=== PATIENT | male | born 1965 | race Caucasian/White ===

== ENCOUNTER → 2016-06-04 | Outpatient (CLI) | payer MEDICARE, MEDICAID ==
[~2016-06-04] MED LIST: BENTYL GENERIC10 MG PO; CIPRO 500MG TA500 MG PO; CYCLOBENZAPRINE10 MG PO; DIAZEPAM10 M1 PO; DIAZEPAM10 MG PO; FLOMAX 0.4MG C0.4 MG PO; GABAPENTIN 600600 MG GT; GABAPENTIN 600600 MG PO; GOOD NEIGHBOR P20 M1 PO; HYDROCODONE 7.51 TAB PO; KAPIDEX60 MG PO; LISINOPRIL 20MG20 MG PO; LORATADINE 10MG10 M1 PO; MEDROL 4MG. DOSE4 MG PO; MELOXICAM15 MG PO; METOCLOPRAMIDE H5 MG PO; MORPHINE SULFAT15 M2 PO; MORPHINE SULFAT15 MG PO; OXYCODONE SR 2020 MG PO; OXYCONTIN 20MG.20 MG PO; PANTOPRAZOLE SO40 MG PO; PERCOCET 10 MG1 EACH PO; PERCOCET1 TA1 PO; PREDNISONE 20MG20 MG PO; PRILOSEC10 MG PO; ROXICET 325 MG500 ML GT; SILVADENE1% TP; SYNTHROID0.025 MG PO; TERAZOSIN PO; TRAZADONE HYDR100 MG PO; TRAZODONE HCL100 MG PO; ULTRAM50 MG PO; VALIUM 10MG TAB10 MG PO; VALIUM10 M1 PO; VITAMIN D1000 IU PO; ZANTAC 150150 MG PO; [UNRECOGNIZED DRUG - REMARK]
[2016-06-04 13:59] LABS: AMPHETAMINES/METAMPHETAMINES NEGATIVE ng/mL (<1000)
== END ==
LOC: LAB 13:31
PROVIDERS: Emergency Medicine
DX: Z79.899 Other long term (current) drug therapy (principal)

== ENCOUNTER → 2016-06-29 | Outpatient (CLI) | payer MEDICARE, MEDICAID ==
[2016-06-29 16:22] LABS: HEMOGLOBIN 12.5 g/dL (14.1-18.0); LYMPH # 0.9 K/mm3 (0.7-4.5); LYMPH % 15.1 % (10-50)
[2016-06-29 16:45] LABS: AMPHETAMINES/METAMPHETAMINES NEGATIVE ng/mL (<1000)
[2016-06-29 16:50] LABS: BUN 9 mg/dL (7-18)
[2016-06-29 16:56] LABS: GFR (ESTIMATED) 90 ML/MIN (>60)
== END ==
LOC: LAB 15:31
PROVIDERS: Emergency Medicine
DX: I10 Essential (primary) hypertension (principal); E07.9 Disorder of thyroid, unspecified; Z79.899 Other long term (current) drug therapy

== ENCOUNTER → 2016-07-07 | Outpatient (CLI) | payer MEDICARE, MEDICAID ==
[2016-07-10 14:51] LABS: STOOL OCCULT BLOOD NEGATIVE (NEG)
== END ==
LOC: LAB 12:00
PROVIDERS: Emergency Medicine
DX: D64.9 Anemia, unspecified (principal)

== ENCOUNTER → 2016-07-08 | Outpatient (CLI) | payer MEDICARE, MEDICAID ==
[2016-07-10 14:52] LABS: STOOL OCCULT BLOOD NEGATIVE (NEG)
[2016-07-10 14:52] LABS: STOOL OCCULT BLOOD NEGATIVE (NEG)
== END ==
LOC: LAB 12:00
PROVIDERS: Emergency Medicine
DX: D64.9 Anemia, unspecified (principal)

== ENCOUNTER → 2016-07-25 | Outpatient (CLI) | payer MEDICARE, MEDICAID ==
[2016-07-25 15:29] LABS: HEMOGLOBIN 11.9 g/dL (14.1-18.0); LYMPH # 0.8 K/mm3 (0.7-4.5); LYMPH % 14.9 % (10-50)
[2016-07-25 16:00] LABS: AMPHETAMINES/METAMPHETAMINES NEGATIVE ng/mL (<1000)
--- NOTE | 2016-07-25 17:03 | RADIOLOGY REPORT PS360 ---
CHEST(2 VIEWS-NOT PORTABLE) HISTORY: COUGH W/HEMOPTYSIS ORDERING PHYSICIAN: VERONICA WHITE PATIENT AGE: 51 years COMPARISON: 09/22/2015 FINDINGS: The cardiomediastinal silhouette and pulmonary vascularity are within normal limits. There is COPD with scattered areas of fibrosis. Patchy density is present in the left lower lobe may be due to an area of infiltrate or even a developing nodule. Follow-up recommended. There is increased density in the left suprahilar region also. Prominent than when compared to the previous exam. This could be due to overlapping vessels. No developing hilar nodule/mass is also a consideration. Chronic changes are present in the right lower lobe with some increased density. There is increased density in the region of the right middle lobe/lingula on the lateral view. Surgical clips are present in the right suprahilar region. No acute bony abnormalities. IMPRESSION: 1. COPD with chronic change. 2. Suspect infiltrate in the right middle lobe and/or lingula with chronic changes along with nodular opacity overlying the left lower lobe 2 cm. Pulmonary mass cannot be excluded. 3. Prominence of the suprahilar region on the left which could also be due to developing nodule. Consider chest CT for more thorough evaluation.
== END ==
LOC: RAD 14:06 → LAB 14:06
PROVIDERS: Physician Assistant
DX: R04.2 Hemoptysis (principal); Z79.899 Other long term (current) drug therapy

== ENCOUNTER → 2016-08-27 | Outpatient (CLI) | payer MEDICARE, MEDICAID ==
--- NOTE | 2016-08-29 07:46 | RADIOLOGY REPORT PS360 ---
CT CHEST W/O CONTRAST Ordering Physician: VERONICA WHITE Patient Age: 51 years: Male HISTORY: PULMONARY NODULE, COUGH WITH HYMOPTYSIScough metaphysis history of larynx and neck cancer TECHNIQUE: Helical CT axial scanning performed through chest No IV contrast utilized. Coronal and sagittal Reconstruction CT workstation FINDINGS The patient has a tracheostomy with tracheostomy tube in place. Suspect reconstruction of the esophagus as well, noting postsurgical changes along the entire course of a quite dilated esophagus. 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 Possible bowel interposition reconstructing esophagus. Clinical correlation required.. . The previous CT chest study of August 2013 showed prominent soft tissue lesion with erosion of the medial head of RIGHT clavicle. The soft tissue mass previously seen in this area resected in the interval. This area to the right appears overall satisfactory today but somewhat limited reviewed. Extensive soft tissue density is with previously removed here.-. The neck & this region at base of neck warrants ongoing follow-up, and if no outside CT neck performed (as directed oncology is or cancer team ), then would suggest follow-up CT neck with contrast to follow-up the treated disease at neck & base of neck. Also note that IV contrast be very helpful particular post surgical post cancer patient and better delineate structures at neck and chest on follow-up studies, if feasible. There are prominent hypertrophic changes seen at sternoclavicular junction & anterior left first rib and. I would speculate that these could possibly impinge upon the slightly dilated trachea and ostomy. Conceivably could contribute to dilatation or cough? Merely noted as speculation. . Mediastinum. No significant hilar no mediastinal adenopathy. There are some scattered small mediastinal nodes but these appear stable. In fact anterior mediastinum appears slightly clearer superiorly limited previous. Airways. Mild dilatation of the airways again seen throughout trachea megaly. No endobronchial lesion. Upper normal wall thickness of central airways inferior to the hilar region Lungs. Underlying COPD and emphysematous changes. Linear scarring throughout the lungs most evident toward lung lung bases. Slight associated pleural scarring in these regions. There is only some slight additional density wispy density anteriorly at the are and L. I tend to favor this is reflection of some additional scarring but a be difficult to exclude a very subtle infiltrate sagittal image 28 axial image 67. Stable 4.2 mm nonspecific pulmonary nodule at the right middle lobe near the fissure. Most likely a benign fissural nodule be followed. This remains unchanged. Left apical pleural parenchymal scarring more so than right again noted and stable no new rib or osseous lesions noted. T-spine unchanged. . Uppermost abdomen. No prominent findings Adrenals normal. Tiny immanuel of calcification and wall gallbladder noted.. Upper normal caliber fluid-filled proximal small bowel. ... IMPRESSION:... Prominent postsurgical changes neck & chest.. 1. Tracheostomy. Extensive surgery including resection medial head of clavicle due to mass previously in this region on 2013 CT.. Today we now see some mild irregularities at the medial head of the left clavicle. This may merely reflect some degenerative subchondral cystic changes but but will require follow-up to exclude early lesion. No associated soft tissue density here I suspect this patient interval CT neck or chest elsewhere where he is been followed. If not he can be followed on regular basis by his oncologist or cancer surgery team 2. A tracheostomy tube in place.. Would note the prominent hypertrophy and degenerative changes at left sternoclavicular joint/& left first rib region. This prominent hypertrophic bone Conceivably. Impinge upon the left aspect mass tracheostomy or proximal most trachea...-Speculate that this could yield irritation proximal most trachea at this level & contribute to cough??. Merely speculation. Clinical correlation required 3. Extensive esophageal surgery also evident With Quite Dilated but overall stable appearance of what is likely reconstructed esophagus. 4. Lungs. COPD with areas of scarring throughout, most evident towards bases. Only minor wispy new additional density seen anterior RML and lateral aspect RML. Strongly favor postinflammatory scarring and changes but difficult to totally exclude a subtle areas minimal infiltrate. 5. Stable small 4.2 mm nodule along the fissure RML. It
== END ==
LOC: RAD 12:40
DX: R91.1 Solitary pulmonary nodule (principal); R04.2 Hemoptysis

== ENCOUNTER 2017-04-05 22:25 | Emergency (ER) | payer MEDICARE, MEDICAID ==
[~2017-04-05] VITALS: Ht 172.7 cm; Wt 67.6 kg
[2017-04-05] MEDS ORDERED: GABAPENTIN300 MG PO (22:35)
--- OUTSIDE RECORDS SUMMARY | 2017-04-05 22:50 | External Medical Summary Rpt | CCD ---
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 Name Role Phone A Nicolasa CASTILLO MD PSC, A Unavailable Unavailable Nicolasa CASTILLO MD PSC [facility], [facility] Unavailable Unavailable [facility] Unavailable Unavailable [facility], [facility] LEISA OTERO MD, PSC, Unavailable Unavailable LEISA OTERO MD, PSC [facility] Unavailable Unavailable [facility], [facility], Unavailable Unavailable [facility] ATTILI ANI, ATTILI Unavailable Unavailable KIRT CASTILLO, Unavailable Unavailable ,PSC, NATALYA CASTILLO MD,PSC [facility] Unavailable Unavailable INC., [facility], Unavailable Unavailable INC, [facility] HAYDEN ANT, HAYDEN ANT Unavailable Unavailable [facility] Unavailable Unavailable SERVICE, [facility]available Unavailable SERVICE, [facility] WARD JAM, WARD Unavailable Unavailable JAM COMPREHENSIVE PAIN Unavailable Unavailable SPECIALIS, COMPREHENSIVE PAIN SPECIALIS MEE BRANDEN, Unavailable Unavailable MEE BRANDEN MEE, ALFONSO, Unavailable Unavailable MEE, ALFONSO DISANTIS BLADIMIR, Unavailable Unavailable DISANTIS BLADIMIR ESCOTT EDW, ESCOTT Unavailable Unavailable EDW [facility] Unavailable Unavailable TRANSPORTATION SER, [facility] ADRIAN DASHAWN, ADRIAN Unavailable Unavailable DASHAWN VICENTE COLMENARES S, Unavailable Unavailable [facility] GAL JR THO, GAL JR Unavailable Unavailable THO [facility] Unavailable Unavailable INC, [facility] ROXANA JACOB, ROXANA Unavailable Unavailable JACOB [facility], Unavailable Unavailable [facility] Unavailable Unavailable INC, [facility] KILPELA JEA, KILPELA Unavailable Unavailable CRISTIAN FISHMAN, PEARL FISHMAN Unavailable Unavailable Kenia Bruce MD, Unavailable Unavailable Kenia KAMARA, KING ASAD Unavailable Unavailable MARY SAUNDERS, Unavailable Unavailable MARY CARDONA, RANJITH CARDONA Unavailable Unavailable [facility] Un[facility] CORRY JR DWI, CORRY Unavailable Unavailable JR DWI Tayler Colmenares MD, Unavailable Unavailable Tayler OTERO MD, JESSE Unavailable Unavailable SHANNA WOODS, ERYN WOODS Unavailable Unavailable [facility] Unavailable Unavailable SERVICES, [facility] MCCOUN STEPHEN, MCCOUN Unavailable Unavailable STEPHEN MCGARYMIE JR, TOLU Unavailable Unavailable F, CHELITA MELÉNDEZ, TOLU F BK MCGREGOR, Unavailable Unavailable BK JI, TOLU F, Unavailable Unavailable TOLU JI, GUILHERME Unavailable Unavailable [facility] Unavailable Unavailable [facility] PSC OLSEN AMI, OLSEN AMI Unavailable Unavailable RASLAU FLA, RASLAU Unavailable Unavailable FLA NIVIA KRISTA, NIVIA KRISTA Unavailable Unavailable TRISTA BREANNA, TRISTA Unavailable Unavailable BREANNA DIAS CHAD, Unavailable Unavailable DIAS CHAD ROGOZINSKI ZBI, Unavailable Unavailable ROGOZINSKI ZBI LEFTY AMARILIS, LEFTY AMARILIS Unavailable Unavailable STEYN AMERICA, STEYN AMERICA Unavailable Unavailable STILES NAN, STILES Unavailable Unavailable NAN LONDON WILLIAM, LONDON Unavailable Unavailable WILLIAM DELEON MOL, DELEON MOL Unavailable Unavailable [facility] Unavailable Unavailable HOSPITALS, [facility], Unavailable Unavailable [facility] Un[facility] [place] ANTONI KAMARA, Unavailable Unavailable ANTONI KANG, ZHENG KANG Unavailable Unavailable ELIJAH DASHAWN, ELIJAH Unavailable Unavailable DASHAWN Purpose Continuity of Care Document - 09-27-2007 through 2016 Problems Code Diagnosis DOS Provider Status C329 MALIGNANT 02-04-2017 [facility] UNSPECIFIED K222 ESOPHAGEAL 02-04-2017 [facility] R1310 DYSPHAGIA 02-04-2017 [facility]PECIFIED [facility]ARE H[facility] R1319 OTHER 02-04-2017 [facility] DYSPHAG[facility] Z8521 PERSONAL 02-04-2017 [facility] H[facility] OF SERV MALIGNANT [facility]OUNDATION NEOPLASM OF LARYNX Z930 TRACHEOSTOM 02-04-2017 [facility] STATUS [facility] J982 INTERSTITIA 01-30-2017 [place] [facility] EMPHYSEMA SERV [facility] J9503 MALFUNCTION 01-29-2017 [facility] TRACHEOSTOM HOSPI Y STOMA K228 OTHER 01-29-2017 [facility] SPECIFIED SERV DISEASES OF FOUNDATION ESOPHAGUS Z9002 ACQUIRED 01-29-2017 [facility] ABSENCE OF OF [place] [facility]PI Z923 PERSONAL 01-29-2017 [facility] HISTORY OF OF [place] IRRADIATION HOSPI R69 ILLNESS 01-10-2017 [facility] UNSPECIFIED TRANSPORTAT ION SER H547 UNSPECIFIED 12-26-2016 [facility] K829 DISEASE OF 12-26-2016 [place] [facility] UNSPECIFIED R1011 RIGHT UPPER 12-26-2016 [place] [facility] R42 DIZZINESS 12-26-2016 [place] AND [facility] GIDDINESS IMAGING ASS Z0000 ENCOUNTER 12-17-2016 [facility] W/O ABNORMAL FIND G8929 OTHER 12-13-2016 COMPREHENSI CHRONIC VE PAIN PAIN SPECIALIS G893 NEOPLASM 12-13-2016 COMPREHENSI RELATED VE PAIN PAIN ACUTE SPECIALIS CHRONIC M792 NEURALGIA 12-13-2016 COMPREHENSI AND VE PAIN NEURITIS SPECIALIS UNSPECIFIED 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-2016 COMPREHENSI CURRENT USE VE PAIN OF OPIATE SPECIALIS ANALGESIC D649 ANEMIA 11-19-2016 [facility] UNSPECIFIED PHYSICIANS GROUP E039 HYPOTHYROID 11-19-2016 [facility] ISM PHYSICIANS UNSPECIFIED GROUP I10 ESSENTIAL 11-19-2016 [facility] PRIMARY PHYSICIANS HYPERTENSIO GROUP N J302 OTHER 11-19-2016 [facility] SEASONAL PHYSICIANS ALLERGIC GROUP RHINITIS R491 APHONIA 11-19-2016 [facility] R5382 CHRONIC 11-19-2016 [facility] FATIGUE PHYSICIANS UNSPECIFIED GROUP M5020 OTH 10-23-2016 [place] CERVICAL MEDICAL DISC IMAGING ASS DISPLACEMEN T UNS CERV REGION F26840 OTHER 10-23-2016 [place] CERV[facility] DISC IMAGING ASS DEGENERATIO N AT C5-C6 LEVEL M542 CERVICALGIA 10-23-2016 [facility] M6250 MUSCLE 10-01-2016 NATALYA HARMAN & NICOLE CASTILLO MD,PSC UNSPECIFIED SITE M791 MYALGIA 10-01-2016 NATALYA CASTILLO MD,PSC R5383 OTHER 10-01-2016 NATALYA CASTILLO MD,PSC J449 CHRONIC 08-27-2016 [place] OBSTRUCTIVE MEDICAL PULMONARY IMAGING ASS DISEASE UNS R042 HEMOPTYSIS 08-27-2016 [facility] R911 SOLITARY 08-27-2016 [facility] PULMONARY [facility] NODULE INC R918 OTHER 08-27-2016 [place] NONSPECIFIC MEDICAL ABNORMAL IMAGING ASS FINDING OF LUNG FIELD W10455 OTHER LONG 08-22-2016 [facility] TERM PHYSICIANS CURRENT GROUP DRUG THERAPY E079 DISORDER OF 05-15-2016 [facility] THYROID PHYSICIANS UNSPECIFIED GROUP Z720 TOBACCO USE 05-15-2016 [facility] PHYSICIANS GROUP T12513 PRIMARY 05-09-2016 [facility], TIS RIGHT INC WRIST I76763 PAIN IN 05-09-2016 [facility] PSC G8918 OTHER ACUTE 04-24-2016 [facility] POSTPROCEDU PSC RAL PAIN M1811 UNI PRIM 04-24-2016 [facility] TIS [facility]ST [facility] PSC JOINT RT HAND J84041 PAIN IN 03-19-2016 [facility] RIGHT HAND PHYSICIANS GROUP G894 CHRONIC 02-16-2016 A C ANNA PAIN PSC SYNDROME M5116 INTERVERTEB 01-23-2016 JENNIFER CREWS MD, PSC D/O W/RADICULOP ATHY LUMB RGN Z08 ENCOUNTER 10-07-2015 [facility] F/U [facility] AFTER CMPL TX MALIG NEOPLASM Z9889 OTHER 10-07-2015 [facility] SPECIFIED SERV POSTPROCEDU [facility] STATES X54919 PAIN IN 09-22-2015 [place] LEFT MEDICAL SHOULDER IMAGING ASS R65348 PAIN IN 09-22-2015 [facility] M4722 OT 09-22-2015 [place] SPONDYLOSIS MEDICAL IMAGING ASS W/RADICULOP ATHY CERVICAL REGION Q22972 OTHER 09-22-2015 [place] [facility] SPONDYLOSIS SERV CERVICAL FOUNDATION REGION M5032 OTH CERV 09-22-2015 [place] DISC MEDICAL DEGENERATIO IMAGING ASS N MID-CERVICA L REGION M532X2 SPINAL 09-22-2015 [facility] INSTABILITI [facility] ES CERVICAL INC REGION R079 CHEST PAIN 09-22-2015 [place] UNSPECIFIED MEDICAL IMAGING ASS R52 PAIN 09-22-2015 [facility] UNSPECIFIED [facility]ANCE SERVICE C73515E UNSPEC 09-22-2015 [facility] NONDISPLC AMBULANCE FX 2ND CERV SERVICE VERT INIT CLOSED FX H273LTY UNSPECIFIED 09-22-2015 [place] INJURY OF MEDICAL NECK IMAGING ASS INITIAL ENCOUNTER Z632BJG UNSPECIFIED 09-22-2015 [place] INJURY OF MEDICAL THORAX IMAGING ASS INITIAL ENCOUNTER S3066PL UNS INJURY 09-22-2015 [place] LT SHOULDER MEDICAL UPPER ARM IMAGING ASS INITIAL ENCNTR P43187E CONTUSION 09-22-2015 [facility] INITIAL ENCOUNTER A89782Z CONTUSION 09-22-2015 [facility] INITIAL ENCOUNTER E04AZFD UNSPECIFIED 09-22-2015 [facility] FALL SERV INITIAL FOUNDATION ENCOUNTER Z043 ENCOUNTER 09-22-2015 [facility] EXAM & SERV OBSERVATION FOUNDATION FOLLOW OTH ACCIDENT M5136 OTH 07-15-2015 [place] INTERVERTEB MEDICAL RAL DISC IMAGING ASS DEGEN LUMBAR REGION M545 LOW BACK 07-15-2015 [place] PAIN MEDICAL IMAGING ASS M549 DORSALGIA 07-15-2015 [facility]PECIFIED [facility] V71128 PAIN IN 07-15-2015 [place] LEFT LEG MEDICAL IMAGING ASS J8410 PULMONARY 03-31-2015 [facility] FIBROSIS SERV UNSPECIFIED FOUNDATION 3383 NEOPLASM 01-03-2015 GRIFFIN CREWS MD, PSC PAIN ACUTE CHRONIC 7231 CERVICALGIA 01-03-2015 LEISA OTERO MD, PSC 2449 UNSPECIFIED 12-23-2014 [facility] HYPOTHYROID ISM 78466 JESSEE LOC 12-23-2014 [facility] PROS W/O UR OBST & OTH LUTS 70427 APHONIA 12-23-2014 [facility] 09454 DYSPHAGIA 12-23-2014 [facility] 82282 12-23-2014 [facility] ION SER V1021 PERSONAL 12-23-2014 [facility] HISTORY OF HOSPITAL MALIGNANT NEOPLASM OF LARYNX V573 CARE 12-23-2014 [facility] USE [facility]HAB SPEECH-LANG UAGE [place] V5869 LONG-TERM 12-23-2014 [facility] (CURRENT) HOSPITAL USE OF OTHER MEDICATIONS 97369 LOC 12-15-2014 [facility] OSTEOARTHRO PHYSICIANS S NOT SPEC GROUP WHETHER PRIM/SEC HAND 7295 PAIN IN 11-18-2014 [place] SOFT MEDICAL TISSUES OF IMAGING ASS LIMB 1619 MALIGNANT 11-08-2014 JESSE OTERO NEOPLASM OF MD LARYNX UNSPECIFIED SITE V4579 OTHER 10-06-2014 [facility] ABSENCE OF ORGAN V6709 FOLLOW-UP 10-06-2014 [facility] FOLLOWING OTHER SURGERY 61452 OTHER 09-16-2014 [facility] PAIN 5303 STRICTURE 09-16-2014 [facility] STENOSIS OF ESOPHAGUS 7242 LUMBAGO 09-16-2014 [facility] V676 COMBINED 09-16-2014 [facility] FOLLOW-UP EXAMINATION V4589 OTHER 08-23-2014 [facility] L STATUS OTHER V711 OBSERVATION 08-23-2014 [facility] SUSPECTED MALIGNANT NEOPLASM 96651 ESOPHAGEAL 05-28-2014 Dorothea JIMENES MD PSC 4371 OTH 05-18-2014 [facility] ISCHEMIC CEREBROVASC ULAR DISEASE 56797 OTHER 05-18-2014 [facility] AB[facility]AL FINDING OF LUNG FIELD V1089 PERSONAL 05-18-2014 [facility] MALIGNANT NEOPLASM OTHER SITE V6759 OTHER 05-18-2014 [facility] EXAMINATION OTHER 50288 OTHER 03-31-2014 [facility] 73069 OTHER 02-22-2014 [facility] B[facility] 7385 OTHER 02-22-2014 [facility] DEFORMITY OF BACK OR SPINE 35761 ABDOMINAL 01-22-2014 Dorothea WELSH MD PSC UNSPECIFIED SITE V440 TRACHEOSTOM 12-26-2013 [facility] STATUS V153 PERS HX 11-23-2013 [facility] PRESENTING [facility] 7937 NONSPC ABN 11-16-2013 [facility] [place] [place] 53034 PAIN IN 11-05-2013 [facility] JOINT, MEDICAL SHOULDER IMAGING ASS REGION 92782 UNSPEC 10-20-2013 [facility] DISORDERS [facility]OS[facility] BURSAE&TEND INC ONS SHOULDER REGION 62519 SHORTNESS 10-20-2013 [place] [facility] 76538 CHEST PAIN 10-20-2013 [facility] UNSPECIFIED MEDICAL IMAGING ASS 31388 OTHER CHEST 10-20-2013 [facility] PAIN [facility] INC V1582 PERS HX 10-20-2013 [facility] TOBACCO USE MEM HOSP PRESENTING INC [facility] 7842 SWELLING 09-09-2013 KILPELA JEA MASS OR LUMP IN HEAD AND NECK 35745 SOLITARY 08-19-2013 [facility] NODULE 70943 PRECORDIAL 08-06-2013 NIVIA KRISTA PAIN 17956 UNSPECIFIED 08-03-2013 [facility] CONSTIPATIO INC N 94809 OBSTRUCTIVE 07-18-2013 [facility] CHRONIC [facility]OS[facility] BRONCHITIS INC WITH EXACERBATIO N 5110 PLEURISY 07-18-2013 [facility] WITHOUT [facility]OS[facility] MENTION INC EFFUS/CURRE NT TB 462 ACUTE 07-12-2013 [facility] PHARYNGITIS [facility] INC V4365 KNEE JOINT 05-25-2013 [facility] BY OTHER MEANS V5481 AFTERCARE 05-25-[address] [facility] HOSPITAL JOINT REPLACEMENT 2448 OTHER 05-21-2013 DI[facility] SPECIFIED CHAD ACQUIRED HYPOTHYROID ISM 7841 THROAT PAIN 05-21-2013 DIAS CHAD 20887 DYSPHAGIA 05-21-2013 DIAS OROPHARYNGE CHAD AL PHASE V8741 PERSONAL 05-21-2013 [facility] ANTINEOPLAS TIC CHEMOTHERAP Y 4928 OTHER 05-18-2013 [facility] 5180 PULMONARY 05-18-2013 ELIJAH DASHAWN COLLAPSE 7949 NONSPECIFIC 05-18-2013 [facility] EDW ABNORM RESULTS OT SPEC FUNCT STUDY V5842 AFTERCARE 04-28-[address] [facility] HOSPITAL SURGERY FOR NEOPLASM 786.50 786.50 04-20-2013 [facility] CHEST PAIN [facility] 60159 OTHER 04-03-2013 [facility] DISTURBANCE 6826 CELLULITIS 03-20-2013 A Nicolasa CASTILLO AND ABSCESS PSC OF LEG EXCEPT FOOT 7823 EDEMA 03-20-2013 A Nicolasa CASTILLO MD PSC V0481 NEED 03-20-2013 A Nicolasa CASTILLO PROPHYLACTI PSC C VACCINATION &INOCULATIO N FLU 15343 OTHER 03-16-2013 DISANTIS DISEASE OF BLADIMIR PHARYNX OR NASOPHARYNX V554 ATTN OTHER 03-16-2013 [facility] OPENING DIGESTIVE TRACT V5882 ENCOUNTER 03-16-2013 [place] THOMAS FITTING&ADJ NON-VASCULA R CATHETER NEC V909 RETAINED 03-16-2013 [place] THOMAS FOREIGN BODY UNSPECIFIED MATERIAL 5309 UNSPECIFIED 03-12-2013 [facility] OF ESOPHAGUS V550 ATTENTION 03-12-2013 ELIJAH [facility] TO TRACHEOSTOM Y 161.9 161.9 03-07-2013 [facility] MALIGNANT [facility] VICKIE LARYNX [facility] NOS 536.49 536.49 OTH 03-07-2013 [facility] GASTROSTOMY [facility] COMPLICATIO N 65621 OTHER 03-07-2013 [place] [address] [facility] COMP 03-07-2013 ZHENG KANG DUE OTH IMPLANT&INT ERNAL DEVICE NEC V551 ATTENTION 03-07-2013 ZHENG KANG TO GASTROSTOMY 75801 NON-HEALING 02-27-2013 [facility] WOUND NEC INCLEXINGTO 5119 UNSPECIFIED 02-24-2013 RENNY ASAD PLEURAL EFFUSION 5121 IATROGENIC 02-14-2013 [place] PNEUMOTHROA JUS X 94334 OTHER 02-13-2013 PEARL KYE DISEASES OF NASAL CAVITY AND SINUSES 87923 OTHER 02-13-2013 PE[facility]L KYE DISEASES OF LARYNX V5881 FITTING AND 02-10-2013 KING ASAD ADJUSTMENT OF VASCULAR CATHETER 85316 ACUTE 02-09-2013 CONSTANZA MITCHELL POSTTHORACO RAFAEL PAIN 49090 ACUTE 02-09-2013 ROXANA JAMES RESPIRATORY FAILURE 57344 ULCER OF 02-09-2013 STEYN AMERICA ESOPHAGUS WITHOUT BLEEDING 7833 FEEDING 02-09-2013 ROXANA [place] [address] PAINFUL 02-09-2013 CONSTANZA MITCHELL RESPIRATION 48924 [facility] 02-09-2013 GAL JR THO COMPLICATIO N DUE OTHER TISSUE GRAFT NEC 2639 UNSPECIFIED 02-02-2013 [facility] PROTEIN-MANFRED ORIE MALNUTRITIO N 2769 ELECTROLYTE 02-02-2013 [facility] DISORDERS NEC 2851 ACUTE 02-02-2013 [facility] POSTHEMORRH [facility] AGIC ANEMIA 4571 OTHER 02-02-2013 ANTONI NONINFECTIO ASAD US LYMPHEDEMA 52391 UNSPECIFIED 02-02-2013 ANTONI ASAD ESOPHAGITIS 25108 OTHER 02-02-2013 NELTMANUELA HENRI ESOPHAGITIS 96662 DISRUPTION 02-02-2013 [facility] UNSPECIFIED 30899 OTHER 02-02-2013 [facility] POSTOPERATI [facility] VE INFECTION NEC 68566 OTHER 01-11-2013 MEE DISEASES OF BRANDEN LUNG NOT ELSEWHERE CLASSIFIED 69254 NONSPECIFIC 01-10-2013 ADRIAN DASHAWN ABNORMAL ELECTROCARD IOGRAM 61170 SWELLING OF 12-01-2012 MEE LIMB BRANDEN 1611 MALIGNANT 11-24-2012 [facility] SUPRAGLOTTI S V441 GASTROSTOMY 11-24-2012 [facility] 7224 DEGENERATIO 11-20-2012 [facility] OF CERVICAL INTERVERTEB RAL DISC 515 POSTINFLAMM 10-22-2012 MEE ATORY BRANDEN PULMONARY FIBROSIS V642 SURG/OTH 10-22-2012 CORRY MELÉNDEZ PROC NOT DWI CARRIED OUT BECAUSE PTS DECN 9092 LATE EFFECT 10-13-2012 ANTONI OF ASAD RADIATION V1002 PERS HX MAL 10-07-2012 [facility] OTH&UNS PART ORL CAV&PHARYNX 28007 UNSPECIFIED 09-29-2012 ANTONI OTALGIA ASAD 20276 OTHER 09-26-2012 EME DYSPHAGIA BRANDEN V671 RADIOTHERAP 08-19-2012 [facility] FOLLOW-UP HOSPITAL EXAMINATION 84108 PAIN IN 08-11-2012 [facility] JOINT, MEM HOSP LOWER LEG INC V571 OTHER 08-11-2012 [facility] PHYSICAL [facility] THERAPY INC V7189 OBSERVATION 08-07-2012 [facility] SPECIFIED SUSPECTED CONDITIONS V5489 OTHER 07-28-2012 [facility] AFTERCARE 1610 MALIGNANT 07-14-2012 ATTILI ANI NEOPLASM OF GLOTTIS 486 PNEUMONIA, 07-14-2012 ANTONI ORGANISM ASAD UNSPECIFIED 7856 ENLARGEMENT 07-14-2012 ATTILI ANI OF LYMPH NODES V5849 OTHER 07-14-2012 PEARL FISHMAN SPECIFIED AFTERCARE FOLLOWING SURGERY 7993 UNSPECIFIED 06-19-2012 STILES NAN DEBILITY 7862 COUGH 06-17-2012 KOSTELIC NICKY 25446 OSTEOARTHRO 06-12-2012 DELEON MOL SIS UNSPEC WHETHER GEN/LOC LOWER LEG 98373 UNSPECIFIED 06-12-2012 LEFT[facility] AMARILIS ARTHROPATHY , LOWER LEG 57601 STIFFNESS 06-12-2012 LEFTY AMARILIS OF JOINT NEC LOWER LEG 2382 NEOPLASM OF 06-02-2012 [facility] UNCERTAIN MEM [facility]OSP BEHAVIOR OF INC SKIN 4011 ESSENTIAL 06-02-2012 A Nicolasa CASTILLO HYPERTENSIO PSC N, BENIGN 25482 OTHER 06-02-2012 A Nicolasa CASTILLO MALAISE AND PSC FATIGUE 7822 LOCALIZED 06-02-2012 A Nicolasa CASTILLO SUPERFICIAL PSC SWELLING MASS OR LUMP 41119 UNSPECIFIED 05-29-2012 A Nicolasa CASTILLO VIRAL PSC INFECTION IN CCE & UNS SITE V528 FITTING&ADJ 04-07-2012 [facility] OTHER SPEC PROSTHETIC DEVICE 8489 UNSPECIFIED 03-31-2012 KILMALIK FOSTER SITE OF SPRAIN AND STRAIN 8408 SPRAIN&STRA 03-26-2012 [facility] IN OTH SPEC MEM HOSP SITES INC SHOULDER&UP PER ARM 7078 CHRONIC 03-21-2012 [facility] OTHER SPECIFIED SITE 02641 OTHER 03-21-2012 PEARL FISHMAN DISORDERS OF BONE AND CARTILAGE OTHER 2114 BENIGN 03-19-2012 RANJITH CARDONA NEOPLASM OF RECTUM AND ANAL CANAL 5690 ANAL AND 03-19-2012 [facility] ANT RECTAL POLYP 74183 DIARRHEA 03-19-2012 [facility] INC V1003 PERSONAL 03-19-2012 [facility] ANT HISTORY MALIGNANT NEOPLASM ESOPHAGUS V641 SURG/OTH 03-19-2012 [facility] PROC NOT MEM HOSP DONE INC BECAUSE CONTRAINDIC ATION 92350 OTHER ACUTE 03-10-2012 KILPELA JEA PAIN 99293 OTH COMPS 02-20-2012 [facility] OT HOSPITAL INTRL PROSTH DEVICE IMPL&GFT 5533 DIAPHRAGMAT 02-01-2012 ANTONI DARYL W/O ASAD MENTION OBSTRUCTION /GANGREN 1613 MALIGNANT 01-02-2012 [place] [facility] NEOPLASM OF SERV LARYNGEAL FOUNDATIO CARTILAGES 3384 CHRONIC 01-02-2012 ERYN HAM PAIN SYNDROME 66198 UNSPECIFIED 01-02-2012 [place] [facility] SERV TRACHEOSTOM FOUNDATIO Y COMPLICATIO N 69001 OTHER 01-01-2012 [facility] DISORDER OF THE ESOPHAGUS V1251 PERSONAL 11-06-2011 [facility] HISTORY, HOSPITAL VENOUS THROMBOSIS AND EMBOLISM 19002 TRAUMATIC 11-05-2011 LEFTY OLMOS ARTHROPATHY , LOWER LEG V674 TREATMENT 11-05-2011 [facility] FRACTURE FOLLOW-UP EXAMINATION V9010 RETAINED 11-05-2011 [facility] METAL SERV FRAGMENTS FOUNDATIO UNSPECIFIED 7866 SWELLING, 11-03-2011 [place] [facility] MASS, OR SERV LUMP IN FOUNDATIO CHEST 7292 UNSPECIFIED 11-01-2011 ROGOZINSKI NEURALGIA ZBI NEURITIS AND RADICULITIS 990 EFFECTS OF 09-17-2011 [place] [facility] RADIATION, SERV UNSPECIFIED FOUNDATIO 7291 UNSPECIFIED 09-06-2011 CASTELLANO JAM MYALGIA AND MYOSITIS 64532 MECHANICAL 08-27-2011 [facility] N OF COLOSTOMY&E NTEROSTOMY 72053 DISORDER OF 08-03-2011 [place] [facility] BONE AND SERV CARTILAGE FOUNDATIO UNSPECIFIED 99472 DYSFUNCTION 07-31-2011 OLSEN AMI OF EUSTACHIAN TUBE V1090 PERSONAL 07-31-2011 OLSEN AMI HISTORY UNSPECIFIED MALIGNANT NEOPLASM 1973 SEC 07-19-2011 [facility] MALIGNANT [facility] NEOPLASM OTHER RESPIRATORY ORGANS 1991 OTHER 06-18-2011 [place] [facility] MALIGNANT SERV NEOPLASM OF FOUNDATIO UNSPECIFIED SITE 42043 INFECTION 06-18-2011 [place] [facility] OF SERV CYSTOSTOMY FOUNDATIO 7079 CHRONIC 06-18-2011 ANTONI ULCER OF ASAD UNSPECIFIED SITE 7092 SCAR 04-23-2011 [facility] BREANNA CONDITION AND FIBROSIS OF SKIN 67221 INSOMNIA 04-23-2011 [facility] BREANNA UNSPECIFIED 7804 DIZZINESS 03-03-2011 [place] AND MEDICAL GIDDINESS IMAGING ASS 1950 MALIGNANT 2011 [facility] NEOPLASM OF HOSPITAL HEAD FACE AND NECK 16567 SEC 11-09-2010 [facility] NEOPLASM OF OTHER SPECIFIED SITES 47299 CLOS FX 11-09-2010 [facility] VERTEBRA UNS LEVL W/O SP CRD INJURY 04627 CLOS FX C1 11-09-2010 [facility] VERTE[facility]RA BRACING W/O MENTION INC. SP CRD INJURY 48616 CLOS FX C2 11-09-2010 [facility] VERTEBRA BRACING W/O MENTION INC. SP CRD INJURY 5277 DISTURBANCE 10-16-2010 [facility] SALIVARY SECRETION V5811 ENCOUNTER 08-22-2010 [facility] ANTINEOPLAS TIC CHEMOTHERAP Y V580 RADIOTHERAP 08-21-2010 [facility] V5861 LONG-TERM 06-27-2010 A Nicolasa CASTILLO (CURRENT) [facility] USE OF ANTICOAGULA NTS V5883 ENCOUNTER 06-20-2010 A Nicolasa CASTILLO FOR [facility] THERAPEUTIC DRUG MONITORING E9479 UNSPEC 06-10-2010 A Nicolasa CASTILLO RX/MEDICINA PSC L SBSTNC CAUS ADVRS EFF TX USE 1460 MALIGNANT 06-07-2010 A Nicolasa CASTILLO NEOPLASM OF PSC TONSIL 56728 OTHER 05-18-2010 [facility] EMBOLISM FOUNDATIO AND INFARCTION 2310 CARCINOMA 03-21-2010 [facility] IN S[facility]U OF SERV LARYNX FOUNDATIO 76178 ACUTE 03-21-2010 [facility] LARYNGITIS, SERV WITHOUT FOUNDATIO MENTION OF OBSTRUCTIO 8749 OPEN WOUND 03-10-2010 [facility] OTHER&UNSPE THERAPEUTIC C PARTS SER INC NECK COMPLICATED 7907 BACTEREMIA 03-06-2010 [facility] 99015 INJR OTH 03-02-2010 [facility] INTRATHR [facility] ORGN W/O OPN WND CAV OTH 5192 MEDIASTINIT 03-01-2010 [facility] 514 PULMONARY 02-28-2010 [facility] AND [facility] HYPOSTASIS 586 UNSPECIFIED 02-27-2010 [facility] FAILURE [facility] 7931 NONSPEC 02-26-2010 [facility] OTH EXAM [facility] BODY STRUCT LUNG FIELD 0389 UNSPECIFIED 02-21-2010 [facility] 1629 MALIGNANT 02-21-2010 [place] [facility] BRONCHUS&MAINOR IMAGING ASS NG UNSPEC SITE 46961 OTHER FLUID 02-21-2010 [facility] 5849 ACUTE 02-21-2010 [facility] FAILURE UNSPECIFIED 6821 CELLULITIS 02-21-2010 [facility] 7239 UNSPEC 02-21-2010 [place] [facility] F[facility]ATIO D/O&SYMPTOM S REFERABLE NECK 68130 SEPSIS 02-21-2010 [facility] 6822 CELLULITIS 02-20-2010 [facility] 74292 FEVER 02-20-2010 [facility] UNSPECIFIED [facility]ERGENCY SERVICES 19337 OTHER 02-20-2010 [facility] RESPIRATORY ABNORMALITI ES 7820 DISTURBANCE 12-17-2009 [place] [facility] 36191 OTHER VOICE 03-24-2009 [facility] THE DISORDERS [facility] 2356 NEOPLASM OF 03-18-2009 [facility] LARYNX 2391 NEOPLASM 03-18-2009 [facility] UNSPECIFIED [facility] RESPIRATORY PROF SERV SYSTEM [id number] DIAB W/O 03-18-2009 JOE COMP TYPE [facility] II/UNS [facility] STATED PROF SERV UNCNTRL [id number] OTHER 03-18-2009 JOE SPECIFIED [facility] VE PROF SERV EXAMINATION 70213 OPEN WOUND 09-29-2008 [facility] WITHOUT EMERGENCY MENTION SERVICES COMPLICATIO ASSOCIATES N 32262 OPEN WOUND 09-29-2008 [facility] FCE OTH&MX AMBULANCE SITES SERVICE WITHOUT MENTION COMP 9160 HIP THI 09-29-2008 [facility] LEG&ANK AMBULANCE ABRASION/FR SERVICE ICION BURN W/O INF 66252 CONTUSION 09-29-2008 [facility] [id number] FALL FROM 09-29-2008 [facility] OTHER EMERGENCY SLIPPING SERVICES TRIPPING OR ASSOCIATES STUMBLING 8472 LUMBAR 03-30-2008 [facility] 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, UNSPECIFIED D64.9 ANEMIA, UNSPECIFIED E55.9 VITAMIN D DEFICIENCY, UNSPECIFIED F10.129 ALCOHOL ABUSE WITH INTOXICATIO N, UNSPECIFIED F10.929 ALCOHOL USE, UNSPECIFIED WITH INTOXICATIO N, UNSPECIFIED G40.909 EPILEPSY, UNSP, NOT INTRACTABLE , WITHOUT STATUS EPILEPTICUS I10 ESSENTIAL (PRIMARY) HYPERTENSIO N J02.9 ACUTE PHARYNGITIS , UNSPECIFIED J44.1 CHRONIC OBSTRUCTIVE PULMONARY DISEASE W (ACUTE) EXACERBATIO N K59.00 CONSTIPATIO N, UNSPECIFIED M25.519 PAIN IN UNSPECIFIED SHOULDER M53.2X1 SPINAL INSTABILITI ES, OCCIPITO-AT [place] M54.2 CERVICALGIA M54.5 LOW BACK PAIN M75.80 OTHER SHOULDER LESIONS, UNSPECIFIED SHOULDER R04.2 HEMOPTYSIS R07.9 CHEST PAIN, UNSPECIFIED R09.1 PLEURISY R10.9 UNSPECIFIED ABDOMINAL PAIN S40.019A CONTUSION OF UNSPECIFIED SHOULDER, INITIAL ENCOUNTER Z79.899 OTHER SKILLED NURSING (CURRENT) DRUG THERAPY Z98.890 OTHER SPECIFIED POSTPROCEDU RAL STATES Allergies, Adverse Reactions, Alerts Type Drug Allergy Adverse Reaction to Substance Substance Reaction Severity No Known Allergies - Unknown Mild Nka Medications Na ND Rx Da Fi Fi Am Da Di Ph RX Ph St me C No te ll ll ou ys ag ar # ys at rm s nt no ma ic us Or Da si cy ia de te s n re d 63 12 0 No PI 73 -0 RI 90 9- Lo N 43 20 ng 81 40 13 er 1 MG Ac ti CH ve EW AB LE TA BL ET GA [address] 27 -2 RO 00 6- Lo GR 44 20 ng AF 53 13 er IN 5 Ac 66 ti -1 ve 0 SO MAINOR TI ON LI 76 10 0 No DO 32 -2 CA 93 6- Lo IN 01 20 ng E 30 13 er HC 5 L Ac 2% ti ve JE LL Y HY [address] 12 -2 OC 14 6- Lo OD 65 20 ng 51 13 er 7. 5 5M Ac G/ ti AP ve AP 50 0M G EL X KE 00 09 0 No TO 40 -0 RO 93 1- Lo LA 79 20 ng C 50 13 er 30 1 Ac MG ti /M ve L AL SO 00 09 0 No MAINOR 00 -0 -M 90 1- Lo ED 04 20 ng RO 72 13 er L 2 12 Ac 5 ti MG ve AL Sa 63 08 1 No li 80 -3 ne 70 1- Lo 10 20 ng Fl 07 13 er us 5 h Ac 10 ti ML ve Sy ri ng e Vital Signs 04-20-2013 20:03 Name Value Interpretat Reference Comment ion Range BP 84 mm[Hg] Diastolic BP Systolic 122 mm[Hg] Heart 91 /min Rate/Pulse O2% 95 % Respiratory 20 /min Rate 04-20-2013 19:58 Name Value Interpretat Reference Comment ion Range BP 84 mm[Hg] Diastolic BP Systolic 122 mm[Hg] Heart 91 /min Rate/Pulse Respiratory 20 /min Rate 04-20-2013 19:27 Name Value Interpretat Reference Comment ion Range O2% 95 % 03-07-2013 11:32 Name Value Interpretat Reference Comment ion Range Body 98.8 [degF] Temperature BP 59 mm[Hg] Diastolic BP Systolic 116 mm[Hg] Heart 61 /min Rate/Pulse O2% 99 % Respiratory 20 /min Rate 03-07-2013 11:30 Name Value Interpretat Reference Comment ion Range Body 98.8 [degF] Temperature 03-07-2013 09:52 Name Value Interpretat Reference Comment ion Range BP 83 mm[Hg] Diastolic BP Systolic 130 mm[Hg] Heart 60 /min Rate/Pulse O2% 99 % Respiratory 20 /min Rate 01-11-2013 02:00 Name Value Interpretat Reference Comment ion Range BP 60 mm[Hg] Diastolic BP Systolic 112 mm[Hg] Heart 74 /min Rate/Pulse O2% 95 % Respiratory 20 /min Rate 01-11-2013 Name Value Interpretat Reference Comment ion Range BP 78 mm[Hg] Diastolic BP Systolic 132 mm[Hg] Heart 80 /min Rate/Pulse O2% 93 % Respiratory 20 /min Rate 10-22-2012 22:05 Name Value Interpretat Reference Comment ion Range BP 76 mm[Hg] Diastolic BP Systolic 123 mm[Hg] Heart 87 /min Rate/Pulse O2% 98 % Respiratory 20 /min Rate Results Labs Lab Lab Date Result Refere Interp Status Commen Order Detail nces retati t Range on Magnesium SerPl-mCnc (03-14-2017 06:36) Magnesi 2.1 1.9-2.4 complet um 017 mg/dL ed SerPl-m 06:36 Cnc Phosphate SerPl-mCnc (03-14-2017 06:36) Phospha 3.4 2.5-4.5 complet te 017 mg/dL ed SerPl-m 06:36 Cnc Phosphate SerPl-mCnc (03-12-2017 04:47) Phospha 4.0 2.5-4.5 complet te 017 mg/dL ed SerPl-m 04:47 Cnc Magnesium SerPl-mCnc (03-12-2017 04:47) Magnesi 1.8 1.9-2.4 complet um 017 mg/dL ed SerPl-m 04:47 Cnc Phosphate SerPl-mCnc (03-10-2017 04:31) Phospha 3.7 2.5-4.5 complet te 017 mg/dL ed SerPl-m 04:31 Cnc Magnesium SerPl-mCnc (03-10-2017 04:31) Magnesi 1.7 1.9-2.4 complet um 017 mg/dL ed SerPl-m 04:31 Cnc Ca-I SerPl ISE-sCnc (03-10-2017 04:31) Ca-I 4.5 4.6-5.1 complet SerPl 017 mg/dL ed ISE-sCn 04:31 c Phosphate SerPl-mCnc (03-09-2017 04:10) Phospha 3.0 2.5-4.5 complet te 017 mg/dL ed SerPl-m 04:10 Cnc Magnesium SerPl-mCnc (03-09-2017 04:10) Magnesi 2.0 1.9-2.4 complet um 017 mg/dL ed SerPl-m 04:10 Cnc Ca-I SerPl ISE-sCnc (03-09-2017 04:10) Ca-I 4.3 4.6-5.1 complet SerPl 017 mg/dL ed ISE-sCn 04:10 c Phosphate SerPl-mCnc (03-08-2017 02:58) Phospha 3.2 2.5-4.5 complet te 017 mg/dL ed SerPl-m 02:58 Cnc Magnesium SerPl-mCnc (03-08-2017 02:58) Magnesi 1.9 1.9-2.4 complet um 017 mg/dL ed SerPl-m 02:58 Cnc MDRO Wnd (03-07-2017 14:37) Bacteri [id number] complet a XXX 017 00 not ed Anaerob 14:37 isolate e+Aerob d e Cult (qualif ier value) SCT NMDR NO MULTI DRUG RESISTA NT ORGANIS MS ISOLATE D L CC XXX NOTAP complet VC-aCnc 017 NOT ed 14:37 APPLICA BLE L SPECIME SWAB complet N 017 TRANSPO ed CONTAIN 14:37 RT ER SWAB(S) INFO: L Phosphate SerPl-mCnc (03-07-2017 03:37) Phospha 3.9 2.5-4.5 complet te 017 mg/dL ed SerPl-m 03:37 Cnc Magnesium SerPl-mCnc (03-07-2017 03:37) Magnesi 1.8 1.9-2.4 complet um 017 mg/dL ed SerPl-m 03:37 Cnc Vancomycin SerPl-mCnc (03-07-2017 03:37) Vancomy 18.9 0-40.0 complet suresh 017 ug/mL ed SerPl-m 03:37 Cnc Lactate Bld-sCnc (03-06-2017 22:28) Lactate DUP complet 017 DUPLICA ed Bld-sCn 22:28 TE c ORDER,C REDITED L mmol/L Phosphate SerPl-mCnc (03-06-2017 22:28) Phospha 3.7 2.5-4.5 complet te 017 mg/dL ed SerPl-m 22:28 Cnc Magnesium SerPl-mCnc (03-06-2017 22:28) Magnesi 1.7 1.9-2.4 complet um 017 mg/dL ed SerPl-m 22:28 Cnc Ca-I SerPl ISE-sCnc (01-30-2017 02:24) Ca-I 4.5 4.6-5.1 complet SerPl 017 mg/dL ed ISE-sCn 02:24 c Phosphate SerPl-mCnc (01-30-2017 02:24) Phospha 4.5 2.5-4.5 complet te 017 mg/dL ed SerPl-m 02:24 Cnc Magnesium SerPl-mCnc (01-30-2017 02:24) Magnesi 1.9 1.9-2.4 complet um 017 mg/dL ed SerPl-m 02:24 Cnc COMPREHENSIVE METABOLIC PANEL (04-20-2013 17:30) Glucose 94 74-106 complet 013 mg/dL ed Bld-mCn 17:30 c BUN 12 7-18 complet Bld-mCn 013 mg/dL ed c 17:30 Creat 0.7 0.8-1.3 complet SerPl-m 013 mg/dL ed Cnc 17:30 GFR/BSA 121 Greater complet .pred 013 ML/MIN than ed SerPl 17:30 60 Schwart z-vRate Sodium 139 136-145 complet SerPl-s 013 mmoL/L ed Cnc 17:30 Potassi 3.7 3.5-5.1 complet um 013 mmoL/L ed SerPl-s 17:30 Cnc Chlorid 104 98-107 complet e 013 mmoL/L ed SerPl-s 17:30 Cnc CO2 24 21.0-32 complet SerPl-s 013 mmoL/L .0 ed Cnc 17:30 Calcium 8.5 8.5-10. complet 013 mg/dL 1 ed SerPl-m 17:30 Cnc Prot 7.3 6.4-8.2 complet SerPl-m 013 gm/dL ed Cnc 17:30 Albumin 3.3 3.4-5.0 complet 013 gm/dL ed SerPl-m 17:30 Cnc Globuli 4.0 1.3-3.2 complet n 013 gm/dL ed Ser-mCn 17:30 c Albumin 0.8 UNK 1.1-1.8 complet /Glob 013 ed SerPl-m 17:30 Rto Bilirub 0.2 0.2-1.0 complet 013 mg/dL ed SerPl-m 17:30 Cnc AST 14 U/L 15-37 complet SerPl-c 013 ed Cnc 17:30 ALT 39 U/L 30-65 complet SerPl-c 013 ed Cnc 17:30 ALP 167 U/L 50-136 complet SerPl-c 013 ed Cnc 17:30 CBC with AUTO DIFF (04-20-2013 17:30) WBC # 04-20- 6.1 4.8-10. complet Bld 013 K/MM3 8 ed Auto 17:30 RBC # 04-20- 4.37 4.6-6.2 complet Bld 013 M/mm3 ed Auto 17:30 Hgb 04-20-2 11.0 14.1-18 complet Bld-mCn 013 g/dL .0 ed c 17:30 Hct Fr 35.4 % 42.0-52 complet Bld 013 .0 ed 17:30 MCV RBC 81.1 fl 82.2-97 complet 013 .8 ed 17:30 MCH RBC 25.1 pg 27-31.2 complet Qn 013 ed Auto 17:30 MEAN 31.0 31.8-35 complet CORPUSC 013 g/dl .4 ed ULAR 17:30 HGB CONC RDW RBC 16.2 % 11.5-17 complet Auto 013 .5 ed 17:30 Platele 347 142-424 complet t Bld 013 K/mm3 ed Ql 17:30 Manual MEAN 6.9 fl 7.4-10. complet PLATELE 013 4 ed T 17:30 VOLUME Granulo 74.6 % 37.0-80 complet cytes 013 .0 ed Fr Bld 17:30 Auto LYMPH % 2 17.9 % 10-50 complet 013 ed 17:30 Monocyt 04-20-2 4.2 % 1.7-9.3 complet es Fr 013 ed Bld 17:30 Auto Eosinop 04-20-2 2.7 % 0.1-12. complet hil Fr 013 0 ed Bld 17:30 Auto Basophi 04-20-2 0.6 % 0.1-2.0 complet ls Fr 013 ed Bld 17:30 Auto Granulo 04-20-2 4.6 1.3-8.0 complet cytes # 013 K/mm3 ed Bld 17:30 Auto Lymphoc --2 1.1 0.7-4.5 complet ytes Fr 013 K/mm3 ed Bld 17:30 Auto Monocyt --2 0.3 0.1-1.0 complet es # 013 K/mm3 ed Bld 17:30 Auto Eosinop 04-20-2 0.2 0.0-0.4 complet hil # 013 K/mm3 ed Bld 17:30 Auto Basophi 0.0 0-0.2 complet ls # 013 K/MM3 ed Bld 17:30 Auto COMPREHENSIVE METABOLIC PANEL (01-10-2013 23:20) Glucose 90 74-106 complet 013 mg/dL ed Bld-mCn 23:20 c BUN 8 mg/dL 7-18 complet Bld-mCn 013 ed c 23:20 Creat 1.2 0.8-1.3 complet SerPl-m 013 mg/dL ed Cnc 23:20 GFR 65 Greater complet (ESTIMA 013 ML/MIN than ed ANGELA) 23:20 60 Sodium 01-10- 144 136-145 complet SerPl-s 013 mmoL/L ed Cnc 23:20 Potassi 3.3 3.5-5.1 complet um 013 mmoL/L ed SerPl-s 23:20 Cnc Chlorid 105 98-107 complet e 013 mmoL/L ed SerPl-s 23:20 Cnc CO2 21 21.0-32 complet SerPl-s 013 mmoL/L .0 ed Cnc 23:20 Calcium 8.5 8.5-10. complet 013 mg/dL 1 ed SerPl-m 23:20 Cnc Prot 7.3 6.4-8.2 complet SerPl-m 013 gm/dL ed Cnc 23:20 Albumin 3.8 3.4-5.0 complet 013 gm/dL ed SerPl-m 23:20 Cnc Globuli 3.5 1.3-3.2 complet n 013 gm/dL ed Ser-mCn 23:20 c Albumin 1.1 UNK 1.1-1.8 complet /Glob 013 ed SerPl-m 23:20 Rto Bilirub 0.3 0.2-1.0 complet 013 mg/dL ed SerPl-m 23:20 Cnc AST 01-10- 10 U/L 15-37 complet SerPl-c 013 ed Cnc 23:20 ALT 30 U/L 30-65 complet SerPl-c 013 ed Cnc 23:20 ALP 131 U/L 50-136 complet SerPl-c 013 ed Cnc 23:20 CBC with AUTO DIFF (01-10-2013 23:20) WBC # 08-31-2 4.5 4.8-10. complet Bld 013 K/MM3 8 ed Auto 23:20 RBC # 0831-2 4.74 4.6-6.2 complet Bld 013 M/mm3 ed Auto 23:20 Hgb 01-10-2 13.7 14.1-18 complet Bld-mCn 013 g/dL .0 ed c 23:20 Hct Fr 01-10-2 41.9 % 42.0-52 complet Bld 013 .0 ed 23:20 MCV RBC 01-10-2 88.5 fl 82.2-97 complet 013 .8 ed 23:20 MCH RBC 01-10-2 28.9 pg 27-31.2 complet Qn 013 ed Auto 23:20 MEAN 01-10-2 32.7 31.8-35 complet CORPUSC 013 g/dl .4 ed ULAR 23:20 HGB CONC RDW RBC 01-10-2 16.6 % 11.5-17 complet Auto 013 .5 ed 23:20 Platele 01-10-2 297 142-424 complet t Bld 013 K/mm3 ed Ql 23:20 Manual MEAN 01-10-2 7.1 fl 7.4-10. complet PLATELE 013 4 ed T 23:20 VOLUME Granulo 01-10-2 67.5 % 37.0-80 complet cytes 013 .0 ed Fr Bld 23:20 Auto LYMPH % 01-10-2 23.7 % 10-50 complet 013 ed 23:20 Monocyt 01-10-2 3.4 % 1.7-9.3 complet es Fr 013 ed Bld 23:20 Auto Eosinop 01-10-2 4.4 % 0.1-12. complet hil Fr 013 0 ed Bld 23:20 Auto Basophi 01-10-2 0.9 % 0.1-2.0 complet ls Fr 013 ed Bld 23:20 Auto Granulo -31-2 3.1 1.3-8.0 complet cytes # 013 K/mm3 ed Bld 23:20 Auto Lymphoc -31-2 1.1 0.7-4.5 complet ytes Fr 013 K/mm3 ed Bld 23:20 Auto Monocyt 08-31-2 0.2 0.1-1.0 complet es # 013 K/mm3 ed Bld 23:20 Auto Eosinop 08-31-2 0.2 0.0-0.4 complet hil # 013 K/mm3 ed Bld 23:20 Auto Basophi 08-31-2 0.0 0-0.2 complet ls # 013 K/MM3 ed Bld 23:20 Auto CBC with AUTO DIFF (10-22-2012 21:30) WBC # 06-12-2 5.9 4.8-10. complet Bld 013 K/MM3 8 ed Auto 21:30 RBC # 06-12-2 4.84 4.6-6.2 complet Bld 013 M/mm3 ed Auto 21:30 Hgb 06-12-2 13.0 14.1-18 complet Bld-mCn 013 g/dL .0 ed c 21:30 Hct Fr 06-12-2 40.5 % 42.0-52 complet Bld 013 .0 ed 21:30 MCV RBC 06-12-2 83.6 fl 82.2-97 complet 013 .8 ed 21:30 MCH RBC 06-12-2 27.0 pg 27-31.2 complet Qn 013 ed Auto 21:30 MEAN 06-12-2 32.2 31.8-35 complet CORPUSC 013 g/dl .4 ed ULAR 21:30 HGB CONC RDW RBC 06-12-2 15.8 % 11.5-17 complet Auto 013 .5 ed 21:30 Platele 06-12-2 351 142-424 complet t Bld 013 K/mm3 ed Ql 21:30 Manual MEAN 06-12-2 6.8 fl 7.4-10. complet PLATELE 013 4 ed T 21:30 VOLUME Granulo 06-12-2 71.9 % 37.0-80 complet cytes 013 .0 ed Fr Bld 21:30 Auto LYMPH % 06-12-2 22.6 % 10-50 complet 013 ed 21:30 Monocyt 06-12-2 3.5 % 1.7-9.3 complet es Fr 013 ed Bld 21:30 Auto Eosinop 06-12-2 1.5 % 0.1-12. complet hil Fr 013 0 ed Bld 21:30 Auto Basophi 06-12-2 0.5 % 0.1-2.0 complet ls Fr 013 ed Bld 21:30 Auto Granulo 06-12-2 4.3 1.3-8.0 complet cytes # 013 K/mm3 ed Bld 21:30 Auto Lymphoc 06-12-2 1.3 0.7-4.5 complet ytes Fr 013 K/mm3 ed Bld 21:30 Auto Monocyt 06-12-2 0.2 0.1-1.0 complet es # 013 K/mm3 ed Bld 21:30 Auto Eosinop 06-12-2 0.1 0.0-0.4 complet hil # 013 K/mm3 ed Bld 21:30 Auto Basophi 06-12-2 0.0 0-0.2 complet ls # 013 K/MM3 ed Bld 21:30 Auto Procedures Procedure DOS Code Location Performer Comment INTRATHOR 4252 [facility] ACIC 3 Y Y ESOPHAGOG [facility] ASTROSTOM Y OTHER 4639 [facility] ENTEROSTO 3 Y Y [facility] PARTIAL 4241 [facility] ESOPHAGEC 3 Y Y [facility] 4311 [facility] OU 3 Y Y [facility] OTHER 4289 [facility] REPAIR OF 3 Y Y [facility] 4311 [facility] OUS 0 Y Y [facility] RADICAL 304 [facility] LARYNGECT 0 Y Y RIO [facility] PLASTIC 294 [facility] OPERATION 0 Y Y ON [facility] HOSPITAL PHARYNX OTHER 8669 [facility] SKIN 0 Y Y GRAFT TO HOSPITAL HOSPITAL OTHER SITES NONEXCISI 8628 [facility] ONAL 0 Y Y [facility] NT WOUND INFECTION /BURN LARYNGOSC 3142 [facility] OPY AND 0 Y Y [facility] TRACHEOSC OPY OTHER 3009 [facility] EXCISION/ 0 Y [facility] LES[facility]/TI SSUE LARYNX CONT 9672 [facility] INVASIVE 0 Y Y [facility] 96 CONSECUTI VE HRS/MORE OTH 8604 [facility] INCISION 0 Y Y W/[facility] E SKIN&SUBC UTANEOUS TISSUE REPLACE 97.02 Kenia Bruce MD MY TUBE Encounters Encounter Start End Date Code Location Performer Type Date [facility] UK - 7 7 [facility] 7 7 [facility] JOE - 7 7 [facility] OUTPATIEN [facility] JOE - 7 7 [facility]PATI[facility] JOE - 7 7 [facility] JOE - 7 7 [facility] JOE - 6 6 [facility] JOE - 6 6 [facility] JOE - 6 6 [facility] JOE - 6 6 [facility] JOE - 6 6 [facility] JOE - 6 6 [facility]PAT[facility] JOE [facility] 6 6 [facility] - 6 6 [facility] - 6 6 [facility] 6 [facility] JOE - 6 6 [facility]PATIEN [facility] JOE - 6 6 [facility] UNIVERSIT - 5 5 Y [facility] UNIVERSIT - 5 5 Y [facility] JOE - 5 5 [facility] UNIV[facility] - 5 5 Y [facility] UNIVERSIT - 5 5 Y [facility] UNIVERSIT - 5 5 Y [facility] UNIVERSIT [facility] 5 5 Y [facility] UNIVERSIT - 4 4 Y [facility] UNIVERSIT - 4 4 Y [facility] UNIVERSIT - 4 4 Y [facility] JOE - 4 4 [facility] 4 Y [facility] UNIVERSIT - 4 4 Y [facility] JOE - 4 4 [facility] - 4 4 Y [facility] JOE - 4 4 [facility] 4 4 Y [facility]E - 4 4 [facility] - 4 4 [facility] JOE - 4 4 [facility] - 4 4 [facility] - 4 4 [facility] JOE - 4 4 [facility] UNIVERSIT - 4 4 Y [facility] UNIVERSIT [facility] 4 4 Y [facility] UNIVERSIT [facility] 4 4 Y [facility] UNIVERSIT - 4 4 Y [facility] UNIVERSIT - 3 3 Y [facility] Emergency NILS Colmenares MD (ER) 3 19:40 3 20:54 [facility] JOE - 3 3 [facility] UNIVERSIT - 3 3 Y [facility] JOE - 3 3 [facility] UNIVERSIT - 3 3 Y [facility] UNIVERSIT - 3 3 Y [facility] Emergency NILS Bruce MD (ER) 3 08:59 3 11:50 [facility] JOE - 3 3 [facility] UNIVERSIT - 3 3 Y [facility] UNIVERSIT - 3 3 Y [facility]PATIENT H[facility]PITAL Emergency NILS Colmenares MD (ER) 3 23:25 3 02:00 [facility] UNIVERSIT - 3 3 Y [facility] JOE - 3 3 [facility] UNIVERSIT - 3 3 Y [facility] UNIVERSIT - 3 3 Y [facility] Emergency NILS Colmenares MD (ER) 3 21:19 3 22:20 [facility] JOE - 3 3 [facility] UNIVERSIT - 3 3 Y [facility] UNIVERSIT - 3 3 Y [facility] UNIVERSIT - 3 3 Y [facility] JOE - 3 3 [facility] UNIVERSIT - 3 3 Y [facility] UNIVERSIT - 3 3 Y [facility] UNIVERSIT - 3 3 Y [facility] JOE - 3 3 [facility] UNIVERSIT - 3 3 Y [facility] UNIVERSIT - 3 3 Y [facility] UNIVERSIT [facility] 3 3 Y [facility] JOE - 3 3 [facility] JOE - 3 3 [facility] JOE - 3 3 [facility] UNIVERS[facility] - 2 2 Y [facility] JOE - 2 2 [facility] UNIVERSIT - 2 2 Y [facility] JOE - 2 2 [facility] UNIVERSIT - 2 2 Y [facility] UNIVERSIT [facility] 2 2 Y [facility] UNIVERSIT - 2 2 Y [facility] UNIVERSIT - 2 2 Y [facility] UNIVERSIT - 2 2 Y [facility] UNIVERSIT - 2 2 Y [facility] UNIVERSIT - 2 2 Y [facility] UNIVERSIT - 2 2 Y [facility] UNIVERSIT - 2 2 Y [facility] UNIVERSIT - 2 2 Y [facility] UNIVERSIT - 2 2 Y [facility] UNIVERSIT - 2 2 Y [facility] UNIVERSIT - 2 2 Y [facility] UNIVERSIT - 2 2 Y [facility] UNIVERS[facility] - 2 2 Y [facility] UNIVERSIT - 2 2 Y [facility] UNIVERSIT - 2 2 Y [facility] UNIVERS[facility] - 1 1 Y [facility] UNIVERS[facility] - 1 1 Y [facility] UNIVERS[facility] - 1 1 Y [facility] - 1 1 Y [facility] - 1 1 Y [facility] - 1 1 Y [facility]IT - 1 1 Y [facility] - 1 1 Y [facility] - 1 1 Y [facility] 1 1 Y [facility] - 1 1 Y [facility] - 1 1 Y [facility] - 1 1 Y [facility] - 1 1 Y [facility] - 1 1 Y [facility] - 1 1 Y [facility] - 1 1 Y [facility] - 1 1 Y [facility] - 1 1 Y [facility] - 1 1 Y [facility] - 1 1 Y [facility] - 1 1 Y [facility] - 1 1 Y [facility] - 1 1 Y [facility] - 1 1 Y [facility] - 1 1 Y [facility] - 1 1 Y [facility] - 1 1 Y [facility] - 1 1 Y [facility] - 1 1 Y [facility] - 1 1 Y [facility] - 1 1 Y [facility] - 1 1 Y [facility] - 1 1 Y [facility] - 1 1 Y [facility] - 1 1 Y [facility] - 1 1 Y [facility] - 1 1 Y [facility] - 1 1 Y [facility] - 1 1 Y [facility] - 1 1 Y [facility] - 1 1 Y [facility] - 1 1 Y [facility] - 1 1 Y [facility] - 1 1 Y [facility] UN[facility] - 1 1 Y [facility] UN[facility] - 1 1 Y [facility] UNIV[facility]IT - 1 1 Y [facility] UNIVERSIT [facility] 1 1 Y [facility] UNIV[facility]IT [facility] 1 1 Y [facility] JOE - 1 1 [facility] - 1 1 [facility] - 1 1 [facility] - 1 1 [facility] JOE - 0 0 [facility] 0 0 [facility] UN[facility] - 0 0 [facility] 0 0 [facility] JOE - 0 0 [facility] JOE - 0 0 [facility] JOE - 0 0 [facility] JO[facility] - 0 0 [facility] [address] JOE - 9 9 [facility] JOE [facility] 9 9 [facility] JOE - 9 9 [facility] JOE - 8 8 [facility] JOE - 8 8 [facility]
--- OUTSIDE RECORDS SUMMARY | 2017-04-05 22:50 | External Medical Summary Rpt | CCD ---
Author Author , DONALD Organization DONALD Address Unknown Phone [email or web address] Care Team Providers Care Attending Anesthesiologist Name Role Phone A Nicolasa CASTILLO MD [...] INC HAYDEN ANT, HAYDEN ANT Unavailable Unavailable [facility] Unavailable Unavailable SERVICE, [facility] Unavailable Unavailable SERVICE, [facility] [place], [place] Unavailable Unavailable [facility] Unavailable Unavailable [...] Unavailable [facility], Unavailable Unavailable [facility] Unavailable Unavailable INC, [facility] [place] [facility] Unavailable Unavailable [facility], [facility] KILPELA JEA, KILPELA Unavailable [...] Unavailable SHANNA WOODS, ERYN WOODS Unavailable Unavailable [facility] Unavailable Unavailable SERVICES, [facility] MCCOUN STEPHEN, MCCOUN Unavailable Unavailable STEPHEN MCGARYMIE JR, TOLU Unavailable Unavailable F, CHELITA MELÉNDEZ, TOLU F BK MCGREGOR, Unavailable Unavailable BK JI, TOLU F, Unavailable Unavailable TOLU JI, GUILHERME Unavailable Unavailable HENRI [facility] Unavailable Unavailable [facility], [facility] PSC OLSEN AMI, OLSEN AMI Unavailable [...] WILLIAM DELEON MOL, DELEON MOL Unavailable Unavailable [facility] Unavailable Unavailable HOSPITALS, [facility], Unavailable Unavailable [facility] Unavailable Unavailable [place] [facility], [facility] ANTONI KAMARA, Unavailable Unavailable ANTONI [...] L EMPHYSEMA SERV FOUNDATION J9503 MALFUNCTION 01-29-2017 [facility] TRAC[facility]OSTOM HOSPI Y STOMA K228 OTHER 01-29-2017 [facility] SPECIFIED SERV DISEASES OF FOUNDATION ESOPHAGUS Z9002 ACQUIRED 01-29-2017 [facility] ABSENCE OF OF [place] LARYNX HOSPI Z923 PERSONAL 01-29-2017 [facility] HISTORY OF OF [place] IRRADIATION HOSPI R69 ILLNESS 01-10-2017 [facility] UNSPECIFIED TRANSPORTAT ION SER H547 UNSPECIFIED 12-26-2016 [facility] K829 DISEASE OF 12-26-2016 [place] GALLBLADDER [facility] IMAGING ASS UNSPECIFIED R1011 RIGHT UPPER 12-26-2016 [place] [facility] R42 DIZZINESS 12-26-2016 [place] AND MEDICAL GIDDINESS IMAGING ASS Z0000 ENCOUNTER 12-17-2016 [facility] EXAM HOSPITALS W/O ABNORMAL FIND G8929 OTHER 12-13-2016 COMPREHENSI CHRONIC VE PAIN PAIN SPECIALIS G893 NEOPLASM 12-13-2016 COM[facility] RELATED VE PAIN PAIN ACUTE SPECIALIS CHRONIC M792 NEURALGIA 12-13-2016 COMPREH[facility]SI AND VE PAIN NEURITIS SPECIALIS UNSPECIFIED 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 COMPREHENSI CURRENT USE VE PAIN OF OPIATE SPECIALIS ANALGESIC D649 ANEMIA 11-19-2016 [facility] UNSPECIFIED PHYSICIANS GROUP E039 HYPOTHYROID 11-19-2016 [facility] ISM PHYSICIANS UNSPECIFIED GROUP I10 ESSENTIAL 11-19-2016 [facility] PRIMARY PHYSICIANS HYPERTENSIO GROUP N J302 OTHER 11-19-2016 [facility] SEASONAL PHYSICIANS ALLERGIC GROUP RHINITIS R491 APHONIA 11-19-2016 [facility] R5382 CHRONIC 11-19-2016 [facility] FATIGUE PHYSICIANS UNSPECIFIED GROUP M5020 OTH 10-23-2016 [place] CERVICAL MEDICAL DISC IMAGING ASS DISPLACEMEN T UNS CERV REGION F57651 OTHER 10-23-2016 [place] CERVICAL MEDICAL DISC IMAGING ASS DEGENERATIO N AT C5-C6 LEVEL M542 CERVICALGIA 10-23-2016 [place] [facility] M6250 MUSCLE 10-01-2016 NATALYA HARMAN & NICOLE CASTILLO MD,PSC UNSPECIFIED SITE M791 MYALGIA 10-01-2016 NATALYA CASTILLO MD,PSC R5383 OTHER 10-01-2016 NATALYA CASTILLO MD,PSC J449 CHRONIC 08-27-2016 [place] OBSTRUCTIVE MEDICAL PULMONARY IMAGING ASS DISEASE UNS R042 HEMOPTYSIS 08-27-2016 [facility] R911 SOLITARY 08-27-2016 [facility] PULMONARY [facility] NODULE INC R918 OTHER 08-27-2016 [place] NONSPECIFIC MEDICAL ABNORMAL IMAGING ASS FINDING OF LUNG FIELD G06148 OTHER LONG 08-22-2016 [facility] TERM PHYSICIANS CURRENT GROUP DRUG THERAPY E079 DISORDER OF 05-15-2016 [facility] THYROID PHYSICIANS UNSPECIFIED GROUP Z720 TOBACCO USE 05-15-2016 [facility] PHYSICIANS GROUP [id number] PRIMARY 05-09-2016 [facility] OSTEOARTHRI BRACING, TIS RIGHT INC WRIST M98857 PAIN IN 05-09-2016 [facility] PSC G8918 OTHER ACUTE 04-24-2016 [facility] POSTPROCEDU PSC RAL PAIN M1811 UNI PRIM 04-24-2016 [facility] TIS 1ST [facility] PSC JOINT RT HAND S03032 PAIN IN 03-19-2016 [facility] RIGHT HAND PHYSICIANS GROUP G894 CHRONIC 02-16-2016 A C ANNA PAIN PSC SYNDROME M5116 INTERVERTEB 01-23-2016 JENNIFER CREWS MD, PSC D/O W/RADICULOP ATHY LUMB RGN Z08 ENCOUNTER 10-07-2015 [facility] F/U [facility] AFTER CMPL TX MALIG NEOPLASM Z9889 OTHER 10-07-2015 [facility] SPECIFIED SERV POSTPROCEDU [facility] G05453 PAIN IN 09-22-2015 [place] LEFT MEDICAL SHOULDER IMAGING ASS N96407 PAIN IN 09-22-2015 [facility] M4722 OT 09-22-2015 [place] SPONDYLOSIS MEDICAL IMAGING ASS W/RADICULOP ATHY CERVICAL REGION J25458 OTHER 09-22-2015 [place] [facility] SPONDYLOSIS SERV CERVICAL FOUNDATION REGION M5032 OTH CERV 09-22-2015 [place] DISC MEDICAL DEGENERATIO IMAGING ASS N MID-CERVICA L REGION M532X2 SPINAL 09-22-2015 [facility] INSTABILITI [facility] ES CERVICAL INC REGION R079 CHEST PAIN 09-22-2015 [place] UNSPECIFIED MEDICAL IMAGING ASS R52 PAIN 09-22-2015 [facility] UNSPECIFIED AMBULANCE SERVICE [id number] UNSPEC 09-22-2015 [facility] NONDISPLC AMBULANCE FX 2ND CERV SERVICE VERT INIT CLOSED FX [id number] UNSPECIFIED 09-22-2015 [place] INJURY OF MEDICAL NECK IMAGING ASS INITIAL ENCOUNTER Y866QZW UNSPECIFIED 09-22-2015 [place] INJURY OF MEDICAL THORAX IMAGING ASS INITIAL ENCOUNTER K1692KY UNS INJURY 09-22-2015 [place] LT SHOULDER MEDICAL UPPER ARM IMAGING ASS INITIAL ENCNTR [id number] CONTUSION 09-22-2015 [place] [facility] INITIAL ENCOUNTER [id number] CONTUSION 09-22-2015 [place] [facility] INITIAL ENCOUNTER X51JOPO UNSPECIFIED 09-22-2015 [facility] FALL SERV INITIAL FOUNDATION ENCOUNTER Z043 ENCOUNTER 09-22-2015 [facility] EXAM & SERV OBSERVATION FOUNDATION FOLLOW OTH ACCIDENT M5136 OTH 07-15-2015 [place] INTERVERTEB MEDICAL RAL DISC IMAGING ASS DEGEN LUMBAR REGION M545 LOW BACK 07-15-2015 [place] PAIN MEDICAL IMAGING ASS M549 DORSALGIA 07-15-2015 [facility] UNSPECIFIED [facility] P21818 PAIN IN 07-15-2015 [place] LEFT LEG MEDICAL IMAGING ASS J8410 PULMONARY 03-31-2015 [facility] FIBROSIS SERV UNSPECIFIED FOUNDATION 3383 NEOPLASM 01-03-2015 GRIFFIN CREWS MD, PSC PAIN ACUTE CHRONIC 7231 CERVICALGIA 01-03-2015 LEISA OTERO MD, PSC 2449 UNSPECIFIED 12-23-2014 [facility] HYPOTHYROID ISM 28800 JESSEE LOC 12-23-2014 [facility] PROS W/O UR OBST & OTH LUTS 76978 APHONIA 12-23-2014 [facility] 55554 DYSPHAGIA 12-23-2014 [facility] 98397 12-23-2014 [facility] ION SER V1021 PERSONAL 12-23-2014 [facility] HISTORY OF HOSPITAL MALIGNANT NEOPLASM OF LARYNX V573 CARE 12-23-2014 [facility] USE REHAB SPEECH-LANG UAGE [place] V5869 LONG-TERM 12-23-2014 [facility] (CURRENT) HOSPITAL USE OF OTHER MEDICATIONS 19826 LOC 12-15-2014 [facility] OSTEOARTHRO PHYSICIANS S NOT SPEC GROUP WHETHER PRIM/SEC HAND 7295 PAIN IN 11-18-2014 [place] SOFT MEDICAL TISSUES OF IMAGING ASS LIMB 1619 MALIGNANT 11-08-2014 JESSE OTERO NEOPLASM OF MD LARYNX UNSPECIFIED SITE V4579 OTHER 10-06-2014 [facility] ABSENCE OF ORGAN V6709 FOLLOW-UP 10-06-2014 [facility] FOLLOWING OTHER SURGERY 74494 OTHER 09-16-2014 [facility] PAIN 5303 STRICTURE 09-16-2014 [facility] STENOSIS OF ESOPHAGUS 7242 LUMBAGO 09-16-2014 [facility] V676 COMBINED 09-16-2014 [facility] FOLLOW-UP EXAMINATION V4589 OTHER 08-23-2014 [facility] L STATUS OTHER V711 OBSERVATION 08-23-2014 [facility] SUSPECTED MALIGNANT NEOPLASM 73497 ESOPHAGEAL 05-28-2014 Dorothea JIMENES MD PSC 4371 OTH 05-18-2014 [facility] ISCHEMIC CEREBROVASC ULAR DISEASE 97329 OTHER 05-18-2014 [facility] ABNORMAL FINDING OF LUNG FIELD V1089 PERSONAL 05-18-2014 [facility] MALIGNANT NEOPLASM OTHER SITE V6759 OTHER 05-18-2014 [facility] EXAMINATION OTHER 80199 OTHER 03-31-2014 [facility] 13135 OTHER 02-22-2014 [facility] 7385 OTHER 02-22-2014 [facility] DEFORMITY OF BACK OR SPINE 79086 ABDOMINAL 01-22-2014 Dorothea WELSH MD PSC UNSPECIFIED SITE V440 TRACHEOSTOM 12-26-2013 [facility] STATUS V153 PERS HX 11-23-2013 [facility] PRESENTING [facility] 7937 NONSPC ABN 11-16-2013 [facility] [place] 50826 PAIN IN 11-05-2013 [facility] JOINT, MEDICAL SHOULDER IMAGING ASS REGION 25511 UNSPEC 10-20-2013 [facility] DISORDERS MEM [facility]OS[facility] BURSAE&TEND INC ONS SHOULDER REGION 97861 SHORTNESS 10-20-2013 [place] OF BREATH MEDICAL IMAGING ASS 18722 CHEST PAIN 10-20-2013 [facility] UNSPECIFIED MEDICAL IMAGING ASS 33308 OTHER CHEST 10-20-2013 [facility] PAIN [facility]OS[facility] INC V1582 PERS HX 10-20-2013 [facility] TOBACCO USE MEM HOSP PRESENTING INC [facility] 7842 SWELLING 09-09-2013 KILPELA JEA MASS OR LUMP IN HEAD AND NECK 50917 SOLITARY 08-19-2013 [facility] NODULE 76438 PRECORDIAL 08-06-2013 NIVIA KRISTA PAIN 82925 UNSPECIFIED 08-03-2013 [facility]OS[facility] CONSTIPATIO INC N 82441 OBSTRUCTIVE 07-18-2013 [facility] CHRONIC [facility] HOS[facility] BRONCHITIS INC WITH EXACERBATIO N 5110 PLEURISY 07-18-2013 [facility] WITHOUT [facility] MENTION INC EFFUS/CURRE NT TB 462 ACUTE 07-12-2013 [facility] PHARYNGITIS [facility] HOS[facility] INC V4365 KNEE JOINT 05-25-2013 [facility] BY OTHER MEANS V5481 AFTERCARE 05-25-2013 [facility] HOSPITAL JOINT REPLACEMENT 2448 OTHER 05-21-2013 [facility] SPECIFIED CHAD ACQUIRED HYPOTHYROID ISM 7841 THROAT PAIN 05-21-2013 [facility] CHAD 50029 DYSPHAGIA 05-21-2013 [facility] OROPHARYNGE CHAD AL PHASE V8741 PERSONAL 05-21-2013 [facility] OF HOSPITAL ANTINEOPLAS TIC CHEMOTHERAP Y 4928 OTHER 05-18-2013 [facility] 5180 PULMONARY 05-18-2013 LEIJAH DASHAWN COLLAPSE 7949 NONSPECIFIC 05-18-2013 [facility] ABNORM RESULTS OT SPEC FUNCT STUDY V5842 AFTERCARE 04-28-2013 [facility] HOSPITAL SURGERY FOR NEOPLASM 786.50 786.50 04-20-2013 [facility] CHEST PAIN [facility] 62282 OTHER 04-03-2013 [facility] DISTURBANCE 6826 CELLULITIS 03-20-2013 A Nicolasa CASTILLO AND ABSCESS PSC OF LEG EXCEPT FOOT 7823 EDEMA 03-20-2013 A Nicolasa CASTILLO MD PSC V0481 NEED 03-20-2013 A Nicolasa CASTILLO PROPHYLACTI PSC C VACCINATION &INOCULATIO N FLU 95346 OTHER 03-16-2013 DISANT[facility] DISEASE OF BLADIMIR PHARYNX OR NASOPHARYNX V554 ATTN OTHER 03-16-2013 [facility] OPEN[facility] DIGESTIVE TRACT V5882 ENCOUNTER 03-16-2013 [place] [facility] FITTING&ADJ NON-VASCULA R CATHETER NEC V909 RETAINED 03-16-2013 [place] THOMAS FOREIGN BODY UNSPECIFIED MATERIAL 5309 UNSPECIFIED 03-12-2013 [facility] OF ESOPHAGUS V550 ATTENTION 03-12-2013 [facility] TO TRACHEOSTOM Y 161.9 161.9 03-07-2013 [facility] MALIGNANT [facility] VICKIE LARYNX [facility] NOS 536.49 536.49 OTH 03-07-2013 [place] GASTROSTOMY [facility] COMPLICATIO N 65880 OTHER 03-07-2013 [facility] [place] [address] [facility] COMP 03-07-2013 ZHENG KANG DUE OTH IMPLANT&INT ERNAL DEVICE NEC V551 ATTENTION 03-07-2013 ZHENG KANG TO GASTROSTOMY 28973 NON-HEALING 02-27-2013 [facility] WOUND NEC INCLEXINGTO 5119 UNSPECIFIED 02-24-2013 RENNY ASAD PLEURAL EFFUSION 5121 IATROGENIC 02-14-2013 [place] PNEUMOTHROA JUS X 50555 OTHER 02-13-2013 PEARL KYE DISEASES OF NASAL CAVITY AND SINUSES 96961 OTHER 02-13-2013 [facility] KYE DISEASES OF LARYNX V5881 FITTING AND 02-10-2013 KING ASAD ADJUSTMENT OF VASCULAR CATHETER 84160 ACUTE 02-09-2013 CONSTANZA MITCHELL POSTTHORACO RAFAEL PAIN 02912 ACUTE 02-09-2013 ROXANA JAMES RESPIRATORY FAILURE 13460 ULCER OF 02-09-2013 STEYN [place] ESOPHAGUS WITHOUT BLEEDING 7833 FEEDING 02-09-2013 ROXANA [place] [address] PAINFUL 02-09-2013 CONSTANZA MITCHELL RESPIRATION [address] [facility] 02-09-2013 GAL JR THO COMPLICATIO N DUE OTHER TISSUE GRAFT NEC 2639 UNSPECIFIED 02-02-2013 [facility] PROTEIN-MANFRED ORIE MALNUTRITIO N 2769 ELECTROLYTE 02-02-2013 [facility] HOSPITAL DISORDERS NEC 2851 ACUTE 02-02-2013 [facility] POSTHEMORRH [facility] AGIC ANEMIA 4571 OTHER 02-02-2013 ANTONI NONINFECTIO ASAD US LYMPHEDEMA 67398 UNSPECIFIED 02-02-2013 ANTONI ASAD ESOPHAGITIS 57444 OTHER 02-02-2013 NELTMANUELA HENRI ESOPHAGITIS 71324 DISRUPTION 02-02-2013 [facility] UNSPECIFIED 24259 OTHER 02-02-2013 [facility] POSTOPERATI [facility] VE INFECTION NEC 79221 OTHER 01-11-2013 MEE DISEASES OF BRANDEN LUNG NOT ELSEWHERE CLASSIFIED 03358 NONSPECIFIC 01-10-2013 ADRIAN DASHAWN ABNORMAL ELECTROCARD IOGRAM 07335 SWELLING OF 12-01-2012 [facility] LIMB BRANDEN 1611 MALIGNANT 11-24-2012 [facility] SUPRAGLOTTI S V441 GASTROSTOMY 11-24-2012 [facility] 7224 DEGENERATIO 11-20-2012 [facility] OF CERVICAL INTERVERTEB RAL DISC 515 POSTINFLAMM 10-22-2012 [facility] ATORY BRANDEN PULMONARY FIBROSIS V642 SURG/OTH 10-22-2012 CORRY MELÉNDEZ PROC NOT DWI CARRIED OUT BECAUSE PTS DECN 9092 LATE EFFECT 10-13-2012 ANTONI OF ASAD RADIATION V1002 PERS HX MAL 10-07-2012 [facility] OTH&UNS PART ORL CAV&PHARYNX 97289 UNSPECIFIED 09-29-2012 ANTONI OTALGIA ASAD 92544 OTHER 09-26-2012 MEE DYSPHAGIA BRANDEN V671 RADIOTHERAP 08-19-2012 [facility] FOLLOW-UP HOSPITAL EXAMINATION 03194 PAIN IN 08-11-2012 [facility] JOINT, MEM HOSP LOWER LEG INC V571 OTHER 08-11-2012 [facility] PHYSICAL [facility] THERAPY INC V7189 OBSERVATION 08-07-2012 [facility] SPECIFIED SUSPECTED CONDITIONS V5489 OTHER 07-28-2012 [facility] AFTERCARE 1610 MALIGNANT 07-14-2012 ATTILI ANI NEOPLASM OF GLOTTIS 486 PNEUMONIA, 07-14-2012 ANTONI ORGANISM ASAD UNSPECIFIED 7856 ENLARGEMENT 07-14-2012 ATTILI ANI OF LYMPH NODES V5849 OTHER 07-14-2012 PEARL FISHMAN SPECIFIED AFTERCARE FOLLOWING SURGERY 7993 UNSPECIFIED 06-19-2012 [facility] NAN DEBILITY 7862 COUGH 06-17-2012 KOSTELIC NICKY 19886 OSTEOARTHRO 06-12-2012 DELEON MOL SIS UNSPEC WHETHER GEN/LOC LOWER LEG 86555 UNSPECIFIED 06-12-2012 [facility] AMARILIS ARTHROPATHY , LOWER LEG 29574 STIFFNESS 06-12-2012 [facility] AMARILIS OF JOINT NEC LOWER LEG 2382 NEOPLASM OF 06-02-2012 [facility] UNCERTAIN [facility] BEHAVIOR OF INC SKIN 4011 ESSENTIAL 06-02-2012 A Nicolasa CASTILLO HYPERTENSIO PSC N, BENIGN 32246 OTHER 06-02-2012 A Nicolasa CASTILLO MALAISE AND PSC FATIGUE 7822 LOCALIZED 06-02-2012 A Nicolasa CASTILLO SUPERFICIAL PSC SWELLING MASS OR LUMP 29273 UNSPECIFIED 05-29-2012 A Nicolasa CASTILLO VIRAL PSC INFECTION IN CCE & UNS SITE V528 FITTING&ADJ 04-07-2012 [facility] OTHER SPEC PROSTHETIC DEVICE 8489 UNSPECIFIED 03-31-2012 KILMALIK FOSTER SITE OF SPRAIN AND STRAIN 8408 SPRAIN&STRA 03-26-2012 [facility] IN OTH SPEC MEM HOSP SITES INC SHOULDER&UP PER ARM 7078 CHRONIC 03-21-2012 [facility] OTHER SPECIFIED SITE 24140 OTHER 03-21-2012 PEARL FISHMAN DISORDERS OF BONE AND CARTILAGE OTHER 2114 BENIGN 03-19-2012 RANJITH CARDONA NEOPLASM OF RECTUM AND ANAL CANAL 5690 ANAL AND 03-19-2012 [facility] ANT RECTAL POLYP 26685 DIARRHEA 03-19-2012 [facility] INC V1003 PERSONAL 03-19-2012 [facility] ANT HISTORY MALIGNANT NEOPLASM ESOPHAGUS V641 SURG/OTH 03-19-2012 [facility] PROC NOT MEM HOSP DONE INC BECAUSE CONTRAINDIC ATION 49344 OTHER ACUTE 03-10-2012 KILPELA JEA PAIN 28498 OTH COMPS 02-20-2012 [facility] OT HOSPITAL INTRL PROSTH DEVICE IMPL&GFT 5533 DIAPHRAGMAT 02-01-2012 ANTONI DARYL W/O ASAD MENTION OBSTRUCTION /GANGREN 1613 MALIGNANT 01-02-2012 [place] [facility] NEOPLASM OF SERV LARYNGEAL FOUNDATIO CARTILAGES 3384 CHRONIC 01-02-2012 ERYN HAM PAIN SYNDROME 61897 UNSPECIFIED 01-02-2012 [place] [facility] SERV TRACHEOSTOM FOUNDATIO Y COMPLICATIO N 29436 OTHER 01-01-2012 [facility] HOSPITAL DISORDER OF THE ESOPHAGUS V1251 PERSONAL 11-06-2011 [facility] HISTORY, HOSPITAL VENOUS THROMBOSIS AND EMBOLISM 27835 TRAUMATIC 11-05-2011 LEFT[facility] OLMOS ARTHROPATHY , LOWER LEG V674 TREATMENT 11-05-2011 [facility] FRACTURE FOLLOW-UP EXAMINATION V9010 RETAINED 11-05-2011 [facility] METAL SERV FRAGMENTS FOUNDATIO UNSPECIFIED 7866 SWELLING, 11-03-2011 [place] [facility] MASS, OR SERV LUMP IN FOUNDATIO CHEST 7292 UNSPECIFIED 11-01-2011 ROGOZINSKI NEURALGIA ZBI NEURITIS AND RADICULITIS 990 EFFECTS OF 09-17-2011 [place] [facility] RADIATION, SERV UNSPECIFIED FOUNDATIO 7291 UNSPECIFIED 09-06-2011 CASTELLANO JAM MYALGIA AND MYOSITIS 82878 MECHANICAL 08-27-2011 [facility] N OF COLOSTOMY&E NTEROSTOMY 43032 DISORDER OF 08-03-2011 [place] [facility] BONE AND SERV CARTILAGE FOUNDATIO UNSPECIFIED 59911 DYSFUNCTION 07-31-2011 [facility] AMI OF EUSTACHIAN TUBE V1090 PERSONAL 07-31-2011 [facility] AMI HISTORY UNSPECIFIED MALIGNANT NEOPLASM 1973 SEC 07-19-2011 [facility] MALIGNANT [facility] NEOPLASM OTHER RESPIRATORY ORGANS 1991 OTHER 06-18-2011 [place] [facility] MALIGNANT SERV NEOPLASM OF FOUNDATIO UNSPECIFIED SITE 25571 INFECTION 06-18-2011 [place] [facility] OF SERV CYSTOSTOMY FOUNDATIO 7079 CHRONIC 06-18-2011 ANTONI ULCER OF ASAD UNSPECIFIED SITE 7092 SCAR 04-23-2011 TRI[facility] BREANNA CONDITION AND FIBROSIS OF SKIN 13414 INSOMNIA 04-23-2011 TRI[facility] BREANNA UNSPECIFIED 7804 DIZZINESS 03-03-2011 [place] AND MEDICAL GIDDINESS IMAGING ASS 1950 MALIGNANT 2011 [facility] NEOPLASM OF HOSPITAL HEAD FACE AND NECK 29151 SEC 11-09-2010 [facility] NEOPLASM OF OTHER SPECIFIED SITES 95036 CLOS FX 11-09-2010 [facility] VERTEBRA UNS LEVL W/O SP CRD INJURY 90472 CLOS FX C1 11-09-2010 [facility] VERTEBRA BRACING W/O MENTION INC. SP CRD INJURY 20939 CLOS FX C2 11-09-2010 [facility] VERTEBRA BRACING W/O MENTION INC. SP CRD INJURY 5277 DISTURBANCE 10-16-2010 [facility] SALIVARY SECRETION V5811 ENCOUNTER 08-22-2010 [facility] ANTINEOPLAS TIC CHEMOTHERAP Y V580 RADIOTHERAP 08-21-2010 [facility] V5861 LONG-TERM 06-27-2010 A Nicolasa CASTILLO (CURRENT) PSC USE OF ANTICOAGULA NTS V5883 ENCOUNTER 06-20-2010 A Nicolasa CASTILLO FOR PSC THERAPEUTIC DRUG MONITORING E9479 UNSPEC 06-10-2010 A Nicolasa CASTILLO RX/MEDICINA PSC L SBSTNC CAUS ADVRS EFF TX USE 1460 MALIGNANT 06-07-2010 A Nicolasa CASTILLO NEOPLASM OF PSC TONSIL 78898 OTHER 05-18-2010 [facility] PULMONARY SERV EMBOLISM FOUNDATIO AND INFARCTION 2310 CARCINOMA 03-21-2010 [facility] IN SITU OF SERV LARYNX FOUNDATIO 32020 ACUTE 03-21-2010 [facility] LARYNGITIS, SERV WITHOUT FOUNDATIO MENTION OF OBSTRUCTIO 8749 OPEN WOUND 03-10-2010 [facility] OTHER&UNSPE THERAPEUTIC C PARTS SER INC NECK COMPLICATED 7907 BACTEREMIA 03-06-2010 [place] [facility] FOUNDAT[place] 81285 INJR OTH 03-02-2010 [place] [facility] SPEC SERV INTRATHR FOUNDATIO ORGN W/O OPN WND CAV OTH 5192 MEDIASTINIT 03-01-2010 [facility] IS SERV FOUNDATIO 514 PULMONARY 02-28-2010 [facility] CONGESTION SERV AND FOUNDATIO HYPOSTASIS 586 UNSPECIFIED 02-27-2010 [facility] RENAL SERV FAILURE FOUNDATIO 7931 NONSPEC 02-26-2010 [facility] FIND RAD SERV OTH EXAM FOUNDATIO BODY STRUCT LUNG FIELD 0389 UNSPECIFIED 02-21-2010 [facility] 1629 MALIGNANT 02-21-2010 [place] NEOPLASM MEDICAL BRONCHUS&MAINOR IMAGING ASS NG UNSPEC SITE 87421 OTHER FLUID 02-21-2010 [facility] 5849 ACUTE 02-21-2010 [facility] FAILURE UNSPECIFIED 6821 CELLULITIS 02-21-2010 [facility] NECK 7239 UNSPEC 02-21-2010 [place] [facility] MUSCULOSKEL SERV FOUNDATIO D/O&SYMPTOM S REFERABLE NECK 43557 SEPSIS 02-21-2010 [facility] 6822 CELLULITIS 02-20-2010 [facility] OF TRUNK SERVICES 99803 FEVER 02-20-2010 [facility] UNSPECIFIED EMERGENCY SERVICES 93216 OTHER 02-20-2010 [facility] DYSPNEA AND EMERGENCY SERVICES RESPIRATORY ABNORMALITI ES 7820 DISTURBANCE 12-17-2009 [place] OF SKIN [facility] 45590 OTHER VOICE 03-24-2009 [facility] THE DISORDERS [facility] 2356 NEOPLASM OF 03-18-2009 [facility] LARYNX 2391 NEOPLASM 03-18-2009 [facility] UNSPECIFIED [facility] RESPIRATORY PROF SERV SYSTEM 44348 DIAB W/O 03-18-2009 [facility] COMP TYPE [facility] II/[facility] STATED PROF SERV UNCNTRL [id number] OTHER 03-18-2009 [facility] SPECIFIED [facility] PROF SERV EXAMINATION 41973 OPEN WOUND 09-29-2008 [facility] WITHOUT EMERGENCY MENTION SERVICES COMPLICATIO ASSOC[facility]ATES N 47061 OPEN WOUND 09-29-2008 [facility] FCE OTH&MX AMBULANCE SITES SERVICE WITHOUT MENTION COMP 9160 HIP THI 09-29-2008 [facility] LEG&ANK AMBULANCE ABRASION/FR SERVICE ICION BURN W/O INF 57264 CONTUSION 09-29-2008 [facility] OF [facility] E8859 FALL FROM 09-29-2008 [facility] OTHER EMERGENCY SLIPPING SERVICES TRIPPING OR ASSOCIATES STUMBLING 8472 LUMBAR 03-30-2008 [place] [facility] C32.9 [...] OF UNSPECIFIED SHOULDER, INITIAL ENCOUNTER Z79.899 OTHER HALFWAY (CURRENT) DRUG THERAPY Z98.890 OTHER SPECIFIED POSTPROCEDU [...] 02:58 Cnc MDRO Wnd (03-07-2017 14:37) Bacteri [id number] complet a XXX 017 00 not ed [...] DOS Code Location Performer Comment INTRATHOR 4252 [facility] ACIC 3 Y Y ESOPHAGOG [facility] A[facility] Y OTHER 4639 [facility] ENTEROSTO 3 Y Y [facility] PARTIAL 4241 [facility] ESOPHAGEC 3 Y Y [facility] 4311 [facility] OU 3 Y Y [facility] OTHER 4289 [facility] REPAIR OF 3 Y Y [facility]11 [facility] OUS 0 Y Y [facility] RAD[facility] 304 [facility] LARYNGECT 0 Y Y [facility] PLASTIC 294 [facility] OPERATION 0 Y Y [facility] PHARYNX OTHER 8669 [facility] SKIN 0 Y Y GRAFT TO HOSPITAL HOSPITAL OTHER SITES NONEXCISI 8628 [facility] ONAL 0 Y [facility] W[facility] INFECTION /BURN LARYNGOSC 3142 [facility] OPY AND [address] [facility] TRACHEOSC OPY OTHER 3009 [facility] EXCISION[facility] 0 Y Y [facility] ON LESION/TI SSUE LARYNX CONT 9672 [facility] [facility] INVASIVE 0 Y Y [facility] 96 CONSECUTI VE HRS[facility]MORE OTH [id number] [facility] INCISION 0 Y Y [facility] SKIN&SUBC UTANEOUS TISSUE REPLACE 97.02 Kenia Bruce MD MY TUBE Encounters Encounter Start End Date Code Location Performer Type Date [facility] [place] - 7 7 [facility] - 7 7 [facility] 7 7 [facility] - 7 7 [facility] - 7 7 [facility] 7 7 [facility] - 6 6 [facility] - 6 6 [facility] 6 6 [facility] - 6 6 [facility] 6 6 [facility] 6 6 [facility] 6 6 [facility] 6 6 [facility] UK - 6 [facility] 6 6 [facility] - 6 6 [facility] - 5 5 [facility] UNIVERS[facility] 5 5 Y [facility] JOE - 5 5 [facility] UNIV[facility] 5 5 Y [facility] UNIVERSIT - 5 5 Y [facility] UNIVERSIT - 5 5 Y [facility] UNIVERSIT - 4 4 Y [facility] UNIVERSIT [facility] 4 4 Y [facility] UNIVERSIT - 4 4 Y [facility] OJE - 4 4 [facility] 4 Y [facility] UNIVERSIT [facility] 4 4 Y [facility] JOE - 4 4 [facility] 4 4 [facility] JOE - 4 4 [facility] 4 4 [facility] JOE - 4 4 [facility] - 4 4 [facility] UNIVERSIT - 4 4 Y [facility] UN[facility] - 4 4 Y [facility] UNIVERSIT [facility] 4 4 Y [facility] UNIVERS[facility] - 4 4 Y [facility] UNIV[facility] - 3 3 Y [facility] Emergency NILS Colmenares MD (ER) 3 19:40 3 20:54 [facility] JOE - 3 3 [facility] UNIVERSIT - 3 3 Y [facility] JO[facility] - 3 3 [facility] UNIVERSIT - 3 3 Y [facility] UN[facility] - 3 3 Y [facility] Emergency NILS Bruce MD (ER) 3 08:59 3 11:50 [facility] JOE - 3 3 [facility] UNIVERSIT - 3 3 Y [facility] - 3 3 [facility] Emergency NILS Colmenares MD (ER) 3 23:25 3 02:00 [facility] UNIVERSIT - 3 3 [facility] JOE - 3 3 [facility] UNIVERSIT - 3 3 Y [facility] UNIVERS[facility] - 3 3 Y [facility] Emergency NILS Colmenares MD (ER) 3 21:19 3 22:20 [facility] JOE - 3 3 [facility] UNIVERSIT - 3 3 Y [facility]IV[facility] 3 3 Y [facility] UNIVERSIT - 3 3 Y [facility] JOE - 3 3 [facility] UNIVERSIT - 3 3 Y [facility] UNIVERSIT [facility] 3 3 Y [facility] UNIVERSIT - 3 3 Y [facility] JOE - 3 3 [facility] UNIVERSIT - 3 3 Y [facility] UNIVERSIT [facility] 3 3 Y [facility] UNIVERSIT - 3 3 Y [facility] JOE - 3 3 [facility] JOE - 3 3 [facility] JOE - 3 3 [facility] UNIVERSIT - 2 2 Y [facility] JOE - 2 2 [facility] UNIVERSIT - 2 2 Y [facility] JOE - 2 2 [facility] UNIVERSIT - 2 2 Y [facility] UNIVERSIT [facility] 2 2 Y [facility] UNIVERSIT - 2 2 Y [facility] UNIVERSIT - 2 2 Y [facility] UNIVERSIT - 2 2 Y [facility] UNIVERSIT - 2 2 Y [facility]IV[facility] - 2 2 Y [facility] - 2 2 Y [facility]IVERS[facility] - 2 2 Y [facility]IVERS[facility] - 2 2 Y [facility] UN[facility] - 2 2 Y [facility] UNIVERS[facility] - 2 2 Y [facility] UNIVERS[facility] - 2 2 Y [facility] UNIVERS[facility] - 2 2 Y [facility] UNIVERS[facility] - 2 2 Y [facility] UNIVERS[facility] - 2 2 Y [facility] UNIVERS[facility] - 2 2 Y [facility] UNIVERS[facility] - 1 1 Y [facility] UNIVERS[facility] - 1 1 Y [facility] UNIVERS[facility] - 1 1 Y [facility] UNIVERS[facility] - 1 1 Y [facility] - 1 1 Y [facility]IV[facility] - 1 1 Y [facility] UNIVERSIT - 1 1 Y [facility] UNIVERSIT - 1 1 Y [facility] UNIV[facility] - 1 1 [facility] UNIVERS[facility] 1 1 Y [facility] UNIVERSIT - 1 1 Y [facility] UNIVERS[facility] - 1 1 [facility] UNIV[facility] 1 1 Y [facility] UN[facility] - 1 1 Y [facility] UNIVERS[facility] - 1 1 Y [facility] UNIVERSIT [facility] 1 1 Y [facility] UNIVERSIT - 1 1 Y [facility] UNIVERSIT - 1 1 Y [facility] UNIVERS[facility] - 1 1 Y [facility] UNIV[facility] - 1 1 Y [facility] - 1 1 Y [facility] - 1 1 Y [facility] - 1 1 Y [facility] - 1 1 [facility] UNIVERS[facility] - 1 1 [facility] UN[facility] - 1 1 [facility] UNIVERSIT - 1 1 Y [facility] UNIVERSIT [facility] 1 1 Y [facility] UNIVERSIT - 1 1 Y [facility] UNIVERSIT - 1 1 Y [facility] UNIVERSIT - 1 1 Y [facility] UNIVERSIT - 1 1 Y [facility] - 1 1 Y [facility] - 1 1 Y [facility] - 1 1 Y [facility] - 1 1 Y [facility] - 1 1 Y [facility] - 1 1 Y [facility] - 1 1 Y [facility] - 1 1 Y [facility] - 1 1 Y [facility] - 1 1 Y [facility] - 1 1 Y [facility] - 1 1 Y [facility] - 1 1 Y [facility] UNIV[facility] - 1 1 Y [facility] UNIVERSIT - 1 1 Y [facility] UNIVERSIT - 1 1 Y [facility] UNIVERSIT - 1 1 Y [facility] UNIVERSIT [facility] 1 1 Y [facility] JOE - 1 1 [facility] JOE - 1 1 [facility] JOE [facility] 1 1 [facility] JOE - 1 1 [facility] - 0 0 [facility] UNIVERSIT - 0 0 [facility] UNIVERS - 0 0 [facility] UNIVERS[facility] 0 0 [facility] JOE - 0 0 [facility] JOE - 0 0 [facility] JOE - 0 0 [facility] JOE [facility] 0 0 [facility] [address] JOE - 9 9 [facility] JOE [facility] 9 9 [facility] JOE - 9 9 [facility] JOE [facility] 8 8 [facility] JOE - 8 8 [facility]
--- OUTSIDE RECORDS SUMMARY | 2017-04-05 22:56 | External Medical Summary Rpt | CCD ---
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 [facility] - 3 3 [facility] - 3 3 Y [facility] UN[facility] - 3 3 Y [facility] JOE - 3 3 [facility] UNIVERSIT - 3 3 Y [facility] UNIVERSIT [facility] 3 3 Y [facility] UN[facility]IT - 3 3 Y [facility] JOE - 3 3 [facility] UNIVERSIT - 3 3 Y [facility] UNIVERSIT [facility] 3 3 Y [facility] UN[facility]IT - 3 3 Y [facility] JOE - 3 3 [facility] UNIVERSIT - 3 3 Y [facility] UNIV[facility]IT [facility] 3 3 Y [facility] UN[facility]IT - 3 3 Y [facility] JOE - 3 3 [facility] JOE - 3 3 [facility] JO[facility] - 3 3 [facility] UNIVERS[facility] - 2 2 Y [facility] - 2 2 [facility] - 2 2 Y [facility] - 2 2 [facility] - 2 2 Y [facility] - 2 2 Y [facility] - 2 2 Y [facility] - 2 2 Y [facility] - 2 2 Y [facility] - 2 2 Y [facility] - 2 2 Y [facility] - 2 2 Y [facility] - 2 2 Y [facility] - 2 2 Y [facility] - 2 2 Y [facility] - 2 2 Y [facility] - 2 2 Y [facility] - 2 2 Y [facility] - 2 2 Y [facility] - 2 2 Y [facility] - 2 2 Y [facility] - 1 1 Y [facility] - 1 1 Y [facility] - 1 1 Y [facility] - 1 1 Y [facility] - 1 1 Y [facility] - 1 1 Y [facility] - 1 1 Y [facility] - 1 1 Y [facility] - 1 1 Y [facility] - 1 1 Y [facility] - 1 1 Y [facility] - 1 1 Y [facility] - 1 1 [facility] 1 1 Y [facility] 1 1 Y [facility] - 1 1 Y [facility] - 1 1 Y [facility] 1 1 Y [facility] - 1 1 [facility] - 1 1 Y [facility] - 1 1 Y [facility] - 1 1 Y [facility] - 1 1 Y [facility] - 1 1 Y [facility] - 1 1 [facility] 1 1 Y [facility] - 1 1 Y [facility] - 1 1 [facility] 1 1 [facility] 1 1 [facility] 1 1 [facility] - 1 1 [facility] - 1 1 Y [facility] - 1 1 [facility] 1 1 [facility] - 1 1 Y [facility] - 1 1 Y [facility] - 1 1 Y [facility] - 1 1 Y [facility] - 1 1 Y [facility] - 1 1 Y [facility] - 1 1 Y [facility] - 1 1 Y [facility] - 1 1 Y [facility] - 1 1 Y [facility] - 1 1 Y [facility] - 1 1 Y [facility] - 1 1 Y [facility] 1 1 Y [facility] - 1 1 Y [facility] JOE - 1 1 [facility] [place] [place] [facility] JOE - 1 1 [facility] JOE - 1 1 [facility] [place] [place] [facility] JOE [facility] 1 1 [facility] JOE - 0 0 [facility] UN[facility]IT - 0 0 [facility] 0 0 Y [facility] - 0 0 Y [facility] JOE - 0 0 [facility] JOE - 0 0 [facility] JOE - 0 0 [facility] - 0 0 [facility] [place] [id number] 0 [facility] 9 9 [facility] - 9 9 [facility] JOE - 9 9 [facility] JOE - 9 9 [facility] JOE - 8 8 [facility] JOE - 8 8 [facility]
--- OUTSIDE RECORDS SUMMARY | 2017-04-05 22:56 | External Medical Summary Rpt | CCD ---
Author Author , DONALD Organization DONALD Address Unknown Phone [email or web address] Team Providers Care De Icer Installer Name Role Phone A Nicolasa CASTILLO MD PSC, A Unavailable Unavailable Nicolasa CASTILLO MD PSC [facility], [facility] Unavailable Unavailable [facility] Unavailable Unavailable [facility], [facility] LEISA OTERO MD, PSC, Unavailable Unavailable LEISA OTERO MD, PSC [facility] Unavailable Unavailable [facility], [email or web address], Unavailable Unavailable [email or web address] ATTILI ANI, ATTILI Unavailable Unavailable KIRT CASTILLO, Unavailable Unavailable ,PSC, NATALYA CASTILLO MD,PSC [facility] Unavailable Unavailable INC., [facility], Unavailable Unavailable INC, [facility] HAYDEN ANT, HAYDEN ANT Unavailable Unavailable [facility] Unavailable Unavailable SERVICE, [facility] Unavailable Unavailable SERVICE, [facility] AMES JAM, CASTELLANO Unavailable Unavailable JAM COMPREHENSIVE PAIN Unavailable Unavailable SPECIALIS, COMPREHENSIVE PAIN SPECIALIS MEE BRANDEN, Unavailable Unavailable MEE BRANDEN MEE, ALFONSO, Unavailable Unavailable MEE, ALFONSO DISANTIS BLADIMIR, Unavailable Unavailable DISANTIS BLADIMIR ESCOTT EDW, ESCOTT Unavailable Unavailable EDW [facility] Unavailable Unavailable [facility], [facility] ADRIAN DASHAWN, ADRIAN Unavailable Unavailable DASHAWN VICENTE CAMPBELL S, Unavailable Unavailable VICENTE CAMPBELL S GAL JR THO, GAL JR Unavailable Unavailable THO [facility] Unavailable Unavailable INC, [facility] ROXANA JACOB, ROXANA Unavailable Unavailable JACOB [facility], Unavailable Unavailable [facility] Unavailable Unavailable INC, [facility] Unavailable Unavailable IMAGING ASS, [facility] KILPELA JEA, KILPELA Unavailable [...] Unavailable SHANNA WOODS, ERYN WOODS Unavailable Unavailable [facility] Unavailable Unavailable SERVICES, [facility] CONSTANZA MITCHELL, CONSTANZA Unavailable Unavailable STEPHEN CHELITA JR, TOLU Unavailable Unavailable F, CHELITA MELÉNDEZ, TOLU F BK MCGREGOR, Unavailable Unavailable BK JI, TOLU F, Unavailable Unavailable TOLU JI F GUILHERME HENRI, GUILHERME Unavailable Unavailable HENRI [facility] Unavailable Unavailable [facility], [facility] OLSEN AMI, OLSEN AMI Unavailable Unavailable RASLAU [...] WILLIAM DELEON MOL, DELEON MOL Unavailable Unavailable [facility] Unavailable Unavailable HOSPITALS, [facility], Unavailable Unavailable [facility] Unavailable [facility]available [facility], [facility] ANTONI KAMARA, Unavailable Unavailable ANTONI ASAD KANG, ZHENG KANG Unavailable Unavailable ELIJAH DASHAWN, ELIJAH Unavailable Unavailable DASHAWN Purpose Continuity of Care Document - 09-27-2007 through 2016 Problems Code Diagnosis DOS Provider Status C329 MALIGNANT 02-04-2017 [facility] UNSPECIFIED K222 ESOPHAGEAL 02-04-2017 [place] [facility] R1310 DYSPHAGIA 02-04-2017 [facility] R1319 OTHER 02-04-2017 [place] [facility] DYSP[facility]AG[facility] SERV [facility] Z8521 PERSONAL 02-04-2017 [place] [facility] H[facility] OF SERV MALIGNANT FOUNDATION NEOPLASM OF LARYNX Z930 TRACHEOSTOM 02-04-2017 [place] [facility] STATUS SERV [facility] J982 INTERSTITIA 01-30-2017 [place] [facility] L EMPHYSEMA SERV [facility] J9503 MALFUNCTION 01-29-2017 [facility] TRAC[facility]OSTOM HOSPI Y STOMA K228 OTHER 01-29-2017 [place] [facility] SPECIFIED SERV DISEASES OF FOUNDATION ESOPHAGUS Z9002 ACQUIRED 01-29-2017 [facility] HOSPI Z923 PERSONAL 01-29-2017 [facility] [place] IRRADIATION HOSPI R69 ILLNESS 01-10-2017 [facility] UNSPECIFIED TRANSPORTAT ION SER H547 UNSPECIFIED 12-26-2016 [facility] K829 DISEASE OF 12-26-2016 [place] [facility] UNSPECIFIED R1011 RIGHT UPPER 12-26-2016 [place] [facility] R42 DIZZINESS 12-26-2016 [place] AND MEDICAL GIDDINESS IMAGING ASS Z0000 ENCOUNTER 12-17-2016 [facility] W/O ABNORMAL FIND G8929 OTHER 12-13-2016 COMPREHENSI CHRONIC VE PAIN PAIN SPECIALIS G893 NEOPLASM 12-13-2016 COMPREHENSI RELATED VE PAIN PAIN ACUTE SPECIALIS CHRONIC M792 NEURALGIA 12-13-2016 COMPREHENSI AND VE PAIN NEURITIS SPECIALIS UNSPECIFIED P62347 INTERMEDIATE 12-13-2016 COMPREHENSI CURRENT USE VE PAIN OF OPIATE SPECIALIS ANALGESIC D649 ANEMIA 11-19-[address] [facility] UNSPECIFIED PHYSICIANS GROUP E039 HYPOTHYROID 11-19-[address] [facility] ISM PHYSICIANS UNSPECIFIED GROUP I10 ESSENTIAL 11-19-[address] [facility] PRIMARY PHYSICIANS HYPERTENSIO GROUP N J302 OTHER 11-19-[address] [facility] SEASONAL PHYSICIANS ALLERGIC GROUP RHINITIS R491 APHONIA 11-19-2016 [email or web address] R5382 CHRONIC 11-19-[address] [facility] FATIGUE PHYSICIANS UNSPECIFIED GROUP M5020 OTH 10-23-2016 [place] CERVICAL MEDICAL DISC IMAGING ASS DISPLACEMEN T UNS CERV REGION T39572 OTHER 10-23-2016 [place] CERVICAL MEDICAL DISC IMAGING ASS DEGENERATIO N AT C5-C6 LEVEL M542 CERVICALGIA 10-23-2016 [facility] M6250 MUSCLE 10-01-2016 NATALYA WASTING & NICOLE CASTILLO MD,PSC UNSPECIFIED SITE M791 MYALGIA 10-01-2016 NATALYA CASTILLO MD,PSC R5383 OTHER 10-01-2016 NATALYA FATIGUE MD ANNA,PSC J449 CHRONIC 08-27-2016 [place] OBSTRUCTIVE MEDICAL PULMONARY IMAGING ASS DISEASE UNS R042 HEMOPTYSIS 08-27-2016 [facility] R911 SOLITARY 08-27-2016 [facility] PULMONARY [facility] NODULE INC R918 OTHER 08-27-2016 [place] NONSPECIFIC MEDICAL ABNORMAL IMAGING ASS FINDING OF LUNG FIELD Z10844 OTHER LONG 08-22-[address] [facility] TERM PHYSICIANS CURRENT GROUP DRUG THERAPY E079 DISORDER OF 05-15-[address] [facility] THYROID PHYSICIANS UNSPECIFIED GROUP Z720 TOBACCO USE 05-15-[address] [facility] PHYSICIANS GROUP [id number] PRIMARY 05-09-2016 [facility], TIS RIGHT INC WRIST Z62440 PAIN IN 05-09-2016 NEW RIGHT WRIST [facility] PSC G8918 OTHER ACUTE 04-24-2016 [facility] POSTPROCEDU PSC RAL PAIN M1811 UNI PRIM 04-24-2016 [facility] TIS [facility]ST [facility] PSC JOINT RT HAND O87843 PAIN IN 03-19-[address] [facility] RIGHT HAND PHYSICIANS GROUP G894 CHRONIC 02-16-2016 Dorothea CASTILLO PAIN [facility] SYNDROME M5116 INTERVERTEB 01-23-2016 LEISA OTERO, JENNIFER DISC , PSC D/O W/RADICULOP ATHY LUMB RGN Z08 ENCOUNTER 10-07-2015 [place] F[facility]U [facility] AFTER CMPL TX MALIG NEOPLASM Z9889 OTHER 10-07-2015 [facility] SPECIFIED SERV POSTPROCEDU [facility] STATES I25975 PAIN IN 09-22-2015 [place] LEFT MEDICAL SHOULDER IMAGING ASS B64140 PAIN IN 09-22-2015 LEFT WRIST [facility] M4722 OT 09-22-2015 [place] SPONDYLOSIS MEDICAL IMAGING ASS W/RADICULOP ATHY CERVICAL REGION D50045 OTHER 09-22-2015 [facility] MEDICAL SPONDYLOSIS SERV CERVICAL FOUNDATION REGION M5032 OTH CERV 09-22-2015 [place] DISC MEDICAL DEGENERATIO IMAGING ASS N MID-CERVICA L REGION M532X2 SPINAL 09-22-2015 [facility] CERVICAL INC REGION R079 CHEST PAIN 09-22-2015 [place] UNSPECIFIED MEDICAL IMAGING ASS R52 PAIN 09-22-2015 [facility] UNSPECIFIED [facility]BULANCE SERVICE K81423P UNSPEC 09-22-2015 [facility] NONDISPLC AMBULANCE FX 2ND CERV SERVICE VERT INIT CLOSED FX X150SRK UNSPECIFIED 09-22-2015 [place] INJURY OF MEDICAL NECK IMAGING ASS INITIAL ENCOUNTER O728RRT UNSPECIFIED 09-22-2015 [place] INJURY OF MEDICAL THORAX IMAGING ASS INITIAL ENCOUNTER K7183XY UNS INJURY 09-22-2015 [place] LT SHOULDER MEDICAL UPPER ARM IMAGING ASS INITIAL ENCNTR W37224L CONTUSION 09-22-2015 OF RIGHT [facility]ALS INITIAL ENCOUNTER C65670G CONTUSION 09-22-2015 [facility] INITIAL ENCOUNTER O06QNMD UNSPECIFIED 09-22-2015 [facility] INITIAL FOUNDATION ENCOUNTER Z043 ENCOUNTER 09-22-2015 [place] [facility] EXAM & SERV OBSERVATION FOUNDATION FOLLOW OTH ACCIDENT M5136 OTH 07-15-2015 [place] INTERVERTEB MEDICAL RAL DISC IMAGING ASS DEGEN LUMBAR REGION M545 LOW BACK 07-15-2015 [facility] IM[facility] ASS M549 DORSALGIA 07-15-2015 [facility] UNSPECIFIED MEM HOSP INC V15945 PAIN IN 07-15-2015 [place] LEFT LEG MEDICAL IMAGING ASS J8410 PULMONARY 03-31-2015 [facility] FIBROSIS SERV UNSPECIFIED FOUNDATION 3383 NEOPLASM 01-03-2015 GRIFFIN CREWS MD, PSC PAIN ACUTE CHRONIC 7231 CERVICALGIA 01-03-2015 LEISA OTERO MD, PSC 2449 UNSPECIFIED 12-23-2014 [facility] HYPOTHYROID ISM 64121 JESSEE LOC 12-23-2014 [facility] PROS W/O UR OBST & OTH LUTS 41977 APHONIA 12-23-2014 [facility] 39105 DYSPHAGIA 12-23-2014 [facility] 13480 12-23-2014 [facility] TRANSPORTAT ION SER V1021 PERSONAL 12-23-2014 [place] HISTORY OF [facility]OSPITAL MALIGNANT NEOPLASM OF LARYNX V573 CARE 12-23-2014 [facility] USE REHAB SPEECH-LANG UAGE [place] V5869 LONG-TERM 12-23-2014 [place] (CURRENT) HOSPITAL USE OF OTHER MEDICATIONS 69264 LOC 12-15-[address] [facility] OSTEOARTHRO PHYSICIANS S NOT SPEC GROUP WHETHER PRIM/SEC HAND 7295 PAIN IN 11-18-2014 [place] SOFT MEDICAL TISSUES OF IMAGING ASS LIMB 1619 MALIGNANT 11-08-2014 JESSE OTERO NEOPLASM OF MD LARYNX UNSPECIFIED SITE V4579 OTHER 10-06-2014 [facility] ABSENCE OF ORGAN V6709 FOLLOW-UP 10-06-2014 [facility] FOLLOWING OTHER SURGERY 88901 OTHER 09-16-2014 [facility] PAIN 5303 STRICTURE 09-16-2014 [facility] STENOSIS OF ESOPHAGUS 7242 LUMBAGO 09-16-2014 [facility] V676 COMBINED 09-16-2014 [facility] FOLLOW-UP EXAMINATION V4589 OTHER 08-23-2014 [facility] L STATUS OTHER V711 OBSERVATION 08-23-2014 [facility] SUSPECTED MALIGNANT NEOPLASM 36555 ESOPHAGEAL 05-28-2014 Dorothea CASTILLO REFLUX PSC 4371 OTH 05-18-2014 [facility] ISCHEMIC CEREBROVASC ULAR DISEASE 34954 OTHER 05-18-2014 [facility]OSPITAL ABNORMAL FINDING OF LUNG FIELD V1089 PERSONAL 05-18-2014 [facility] MALIGNANT NEOPLASM OTHER SITE V6759 OTHER 05-18-2014 [place] [facility] EXAMINATION OTHER 15898 OTHER 03-31-2014 [facility] 27342 OTHER 02-22-2014 [facility] BRAIN 7385 OTHER 02-22-2014 [facility] DEFORMITY OF BACK OR SPINE 67535 ABDOMINAL 01-22-2014 Dorothea WELSH MD PSC UNSPECIFIED SITE V440 TRACHEOSTOM 12-26-2013 [facility] STATUS V153 PERS HX 11-23-2013 [place] [facility] PRESENTING [facility] 7937 NONSPC ABN 11-16-2013 [facility] [place] [place] 35315 PAIN IN 11-05-2013 [place] JOINT, MEDICAL SHOULDER IMAGING ASS REGION 07359 UNSPEC 10-20-2013 [facility] DISORDERS MEM [facility]OS[facility] BURSAE&TEND INC ONS SHOULDER REGION 57633 SHORTNESS 10-20-2013 [place] OF BREATH MEDICAL IMAGING ASS 72428 CHEST PAIN 10-20-2013 [facility] UNSPECIFIED MEDICAL IMAGING ASS 56530 OTHER CHEST 10-20-2013 [facility] PAIN [facility] INC V1582 PERS HX 10-20-2013 [facility] TOBACCO USE MEM HOSP PRESENTING INC [facility] 7842 SWELLING 09-09-2013 KILPELA JEA MASS OR LUMP IN HEAD AND NECK 27470 SOLITARY 08-19-2013 [facility] NODULE 71253 PRECORDIAL 08-06-2013 NIVIA KRISTA PAIN 95256 UNSPECIFIED 08-03-2013 [facility] [place] N 80405 OBSTRUCTIVE 07-18-2013 [facility] CHRONIC [facility] BRONCHITIS INC WITH EXACERBATIO N 5110 PLEURISY 07-18-2013 [facility] WITHOUT [facility] MENTION INC EFFUS/CURRE NT TB 462 ACUTE 07-12-2013 [facility] PHARYNGITIS [facility] INC V4365 KNEE JOINT 05-25-2013 [facility] BY OTHER MEANS V5481 AFTERCARE 05-25-2013 [facility] JOINT REPLACEMENT 2448 OTHER 05-21-2013 [facility] SPECIFIED CHAD ACQUIRED HYPOTHYROID ISM 7841 THROAT PAIN 05-21-2013 [facility] CHAD 78237 DYSPHAGIA 05-21-2013 [facility] OROPHARYNGE CHAD AL PHASE V8741 PERSONAL 05-21-2013 [facility] ANTINEOPLAS TIC CHEMOTHERAP Y 4928 OTHER 05-18-2013 [facility] 5180 PULMONARY 05-18-2013 ELIJAH DASHAWN COLLAPSE 7949 NONSPECIFIC 05-18-2013 [facility]W ABNORM RESULTS OT SPEC FUNCT STUDY V5842 AFTERCARE 04-28-2013 [facility] SURGERY FOR NEOPLASM 36870 OTHER 04-03-2013 [facility] DIST[facility]ANCE 6826 CELLULITIS 03-20-2013 A Nicolasa CASTILLO AND ABSCESS PSC OF LEG EXCEPT FOOT 7823 EDEMA 03-20-2013 A Nicolasa CASTILLO MD PSC V0481 NEED 03-20-2013 A Nicolasa CASTILLO PROPHYLACTI PSC C VACCINATION &INOCULATIO N FLU 21785 OTHER 03-16-2013 DISANTIS DISEASE OF BLADIMIR PHARYNX OR NASOPHARYNX V554 ATTN OTHER 03-16-2013 [facility] OPENING DIGESTIVE TRACT V5882 ENCOUNTER 03-16-2013 [place] [facility] FITTING&ADJ NON-VASCULA R CATHETER NEC V909 RETAINED 03-16-2013 [place] TH[facility]AS FOREIGN BODY UNSPECIFIED MATERIAL 5309 UNSPECIFIED 03-12-2013 [facility] OF ESOPHAGUS V550 ATTENTION 03-12-2013 ELIJAH DASHAWN TO TRACHEOSTOM Y 46991 OTHER 03-07-2013 [facility] [place] [address] [facility] COMP 03-07-2013 ZHENG KANG DUE OTH IMPLANT&INT ERNAL DEVICE NEC V551 ATTENTION 03-07-2013 ZHENG KANG TO GASTROSTOMY 58660 NON-HEALING 02-27-2013 [facility] WOUND NEC INCLEXINGTO 5119 UNSPECIFIED 02-24-2013 [facility] PLEURAL EFFUSION 5121 IATROGENIC 02-14-2013 [place] PNEUMOTHROA JUS X 51368 OTHER 02-13-2013 PEAR[facility] KYE DISEASES OF NASAL CAVITY AND SINUSES 04026 OTHER 02-13-2013 PE[facility] FISHMAN DISEASES OF LARYNX V5881 FITTING AND 02-10-2013 [facility]AD ADJUSTMENT OF VASCULAR CATHETER 67640 ACUTE 02-09-2013 CONSTANZA MITCHELL POSTTHORACO RAFAEL PAIN 44215 ACUTE 02-09-2013 ROX[facility] JAMES RESPIRATORY FAILURE 90680 ULCER OF 02-09-2013 [facility] [place] ESOPHAGUS WITHOUT BLEEDING 7833 FEEDING 02-09-2013 ROXANA [place] [address] PAINFUL 02-09-2013 CONSTAN[facility] MITCHELL RESPIRATION 12634 [facility] 02-09-2013 GAL JR THO COMPLICATIO N DUE OTHER TISSUE GRAFT NEC 2639 UNSPECIFIED 02-02-2013 [facility] PROTEIN-MANFRED ORIE MALNUTRITIO N 2769 ELECTROLYTE 02-02-2013 [facility] DISORDERS NEC 2851 ACUTE 02-02-2013 [place] [facility] AGIC ANEMIA 4571 OTHER 02-02-2013 ANTONI NONINFECTIO ASAD US LYMPHEDEMA 09383 UNSPECIFIED 02-02-2013 ANTONI ASAD ESOPHAGITIS 72676 OTHER 02-02-2013 NELTNER HENRI ESOPHAGITIS 95998 DISRUPTION 02-02-2013 [facility] UNSPECIFIED 66719 OTHER 02-02-2013 [place] [facility] VE INFECTION NEC 58406 OTHER 01-11-2013 MEE DISEASES OF BRANDEN LUNG NOT ELSEWHERE CLASSIFIED 32365 NONSPECIFIC 01-10-2013 [facility] ABNORMAL ELECTROCARD IOGRAM 92504 SWELLING OF 12-01-2012 MEE LIMB BRANDEN 1611 MALIGNANT 11-24-2012 [facility] SUPRAGLOTTI S V441 GASTROSTOMY 11-24-2012 [facility] 7224 DEGENERATIO 11-20-2012 [facility] OF CERVICAL INTERVERTEB RAL DISC 515 POSTINFLAMM 10-22-2012 MEE ATORY BRANDEN PULMONARY FIBROSIS V642 SURG/OTH 10-22-2012 CORRY MELÉNDEZ PROC NOT DWI CARRIED OUT BECAUSE PTS DECN 9092 LATE EFFECT 10-13-2012 ANTONI OF ASAD RADIATION V1002 PERS HX MAL 10-07-2012 [facility] OTH&UNS PART ORL CAV&PHARYNX 10307 UNSPECIFIED 09-29-2012 AN[facility] OTALGIA ASAD 10137 OTHER 09-26-2012 MEE DYSPHAGIA BRANDEN V671 RADIOTHERAP 08-19-2012 [place] [facility] EXAMINATION 25199 PAIN IN 08-11-2012 [facility] JOINT, [facility]OS[facility] LOWER LEG INC V571 OTHER 08-11-2012 [facility] PHYSICAL [facility] THERAPY INC V7189 OBSERVATION 08-07-2012 [facility] SPECIFIED SUSPECTED CONDITIONS V5489 OTHER 07-28-2012 [facility] AFTERCARE 1610 MALIGNANT 07-14-2012 ATTILI ANI NEOPLASM OF GLOTTIS 486 PNEUMONIA, 07-14-2012 ANTONI ORGANISM ASAD UNSPECIFIED 7856 ENLARGEMENT 07-14-2012 ATTILI ANI OF LYMPH NODES V5849 OTHER 07-14-2012 PEAR[facility] FISHMAN SPECIFIED AFTERCARE FOLLOWING SURGERY 7993 UNSPECIFIED 06-19-2012 [facility] DEB[facility] 7862 COUGH 06-17-2012 KOSTETAMIKO NICKY 72175 OSTEOARTHRO 06-12-2012 DELEON MOL SIS UNSPEC WHETHER GEN/LOC LOWER LEG 57066 UNSPECIFIED 06-12-2012 [facility] AMARILIS ARTHROPATHY , LOWER LEG 66483 STIFFNESS 06-12-2012 [facility] AMARILIS OF JOINT NEC LOWER LEG 2382 NEOPLASM OF 06-02-2012 [facility] UNCERTAIN [facility] BEHAVIOR OF INC SKIN 4011 ESSENTIAL 06-02-2012 A Nicolasa CASTILLO HYPERTENSIO PSC N, BENIGN 57838 OTHER 06-02-2012 A Nicolasa CASTILLO MALAISE AND PSC FATIGUE 7822 LOCALIZED 06-02-2012 A Nicolasa CASTILLO SUPERFICIAL PSC SWELLING MASS OR LUMP 94274 UNSPECIFIED 05-29-2012 A Nicolasa CASTILLO VIRAL PSC INFECTION IN CCE & UNS SITE V528 FITTING&ADJ 04-07-2012 [facility] OTHER SPEC PROSTHETIC DEVICE 8489 UNSPECIFIED 03-31-2012 K[facility]PE[facility] JEA SITE OF SPRAIN AND STRAIN 8408 SPRAIN&STRA 03-26-2012 [facility] IN OTH SPEC MEM HOS[facility] SITES INC SHOULDER&UP PER ARM 7078 CHRONIC 03-21-2012 [facility] OTHER SPECIFIED SITE 18233 OTHER 03-21-2012 PEARL FISHMAN DISORDERS OF BONE AND CARTILAGE OTHER 2114 BENIGN 03-19-2012 RANJITH CARDONA NEOPLASM OF RECTUM AND ANAL CANAL 5690 ANAL AND 03-19-2012 [facility] ANT RECTAL POLYP 93364 DIARRHEA 03-19-2012 [facility] INC V1003 PERSONAL 03-19-2012 [facility] ANT HISTORY MALIGNANT NEOPLASM ESOPHAGUS V641 SURG/OTH 03-19-2012 [facility] PROC NOT MEM HOS[facility] DONE INC BECAUSE CONTRAINDIC ATION 01493 OTHER ACUTE 03-10-2012 K[place] JEA PAIN 61955 OTH COMPS 02-20-2012 [facility] INTRL PROSTH DEVICE IMPL&GFT 5533 DIAPHRAGMAT 02-01-2012 AN[facility]I BRITO W/O ASAD MENTION OBSTRUCTION /GANGREN 1613 MALIGNANT 01-02-2012 [place] [facility] NEOPLASM OF SERV LARYNGEAL FOUNDATIO CARTILAGES 3384 CHRONIC 01-02-2012 ERYN HAM PAIN SYNDROME 56151 UNSPECIFIED 01-02-2012 [place] [facility] SERV TRACHEOSTOM FOUNDATIO Y COMPLICATIO N 08453 OTHER 01-01-2012 [facility] DISORDER OF THE ESOPHAGUS V1251 PERSONAL 11-06-2011 [place] HISTORY, HOSPITAL VENOUS THROMBOSIS AND EMBOLISM 70314 TRAUMATIC 11-05-2011 LEFT[facility] OLMOS ARTHROPATHY , LOWER LEG V674 TREATMENT 11-05-2011 [facility] FRACTURE FOLLOW-UP EXAMINATION V9010 RETAINED 11-05-2011 [place] [facility] METAL SERV FRAGMENTS FOUNDATIO UNSPECIFIED 7866 SWELLING, 11-03-2011 [place] [facility] MASS, OR SERV LUMP IN FOUNDATIO CHEST 7292 UNSPECIFIED 11-01-2011 ROGOZINSKI NEURALGIA ZBI NEURITIS AND RADICULITIS 990 EFFECTS OF 09-17-2011 [place] [facility] RADIATION, SERV UNSPECIFIED FOUNDATIO 7291 UNSPECIFIED 09-06-2011 CASTELLANO JAM MYALGIA AND MYOSITIS 92845 MECHANICAL 08-27-2011 [facility] N OF COLOSTOMY&E NTEROSTOMY 75700 DISORDER OF 08-03-2011 [place] [facility] BONE AND SERV CARTILAGE FOUNDATIO UNSPECIFIED 28666 DYSFUNCTION 07-31-2011 [facility] AMI OF EUSTACHIAN TUBE V1090 PERSONAL 07-31-2011 [facility] AMI HISTORY UNSPECIFIED MALIGNANT NEOPLASM 1973 SEC 07-19-2011 [facility] NEOPLASM OTHER RESPIRATORY ORGANS 1991 OTHER 06-18-2011 [place] [facility] MALIGNANT SERV NEOPLASM OF FOUNDATIO UNSPECIFIED SITE 09159 INFECTION 06-18-2011 [place] [facility] OF SERV CYSTOSTOMY FOUNDATIO 7079 CHRONIC 06-18-2011 AN[facility] ULCER OF ASAD UNSPECIFIED SITE 7092 SCAR 04-23-2011 [facility] BREAN[facility] CONDITION AND FIBROSIS OF SKIN 91068 INSOMNIA 04-23-2011 [facility] BREANNA UNSPECIFIED 7804 DIZZINESS 03-03-2011 [facility] GIDDINESS IMAGING ASS 1950 MALIGNANT 2011 [place] NEOPLASM OF HOSPITAL HEAD FACE AND NECK 34055 SEC 11-09-2010 [facility] NEOPLASM OF OTHER SPECIFIED SITES 39176 CLOS FX 11-09-2010 [facility] VERTEBRA UNS LEVL W/O SP CRD INJURY 22809 CLOS FX C1 11-09-2010 [facility] VERTEBRA BRACING W/O MENTION INC. SP CRD INJURY 66548 CLOS FX C2 11-09-2010 [facility] VERTEBRA BRACING W/O MENTION INC. SP CRD INJURY 5277 DISTURBANCE 10-16-2010 [facility] SALIVARY SECRETION V5811 ENCOUNTER 08-22-2010 [facility] ANTINEOPLAS TIC CHEMOTHERAP Y V580 RADIOTHERAP 08-21-2010 [facility] V5861 LONG-TERM 06-27-2010 A Nicolasa CASTILLO (CURRENT) [facility] USE OF ANTICOAGULA NTS V5883 ENCOUNTER 06-20-2010 A Nicolasa CASTILLO FOR [facility] THERAPEUTIC DRUG MONITORING E9479 UNSPEC 06-10-2010 A Nicolasa CASTILLO RX/MEDICINA PSC L SBSTNC CAUS ADVRS EFF TX USE 1460 MALIGNANT 06-07-2010 A Nicolasa CASTILLO NEOPLASM OF [facility] TONSIL 88465 OTHER 05-18-2010 [facility] PULMONARY SERV EMBOLISM F[facility]AT[facility] AND INFARCTION 2310 CARCINOMA 03-21-2010 [facility] IN SITU OF SERV LARYNX FOUNDATIO 95438 ACUTE 03-21-2010 [facility] LARYNGITIS, SERV WITHOUT [facility] MENTION OF OBSTRUCTIO 8749 OPEN WOUND 03-10-2010 [facility] OTHER&UNSPE THERAPEUTIC C PARTS SER INC NECK COMPLICATED 7907 BACTEREMIA 03-06-2010 [facility] 54948 INJR OTH 03-02-2010 [facility] SPEC [facility] INTRATHR [facility] ORGN W/O OPN WND CAV OTH 5192 MEDIASTINIT 03-01-2010 [facility] IS [facility] 514 PULMONARY 02-28-2010 [facility] CON[facility]STION SERV AND [facility] HYPOSTASIS 586 UNSPECIFIED 02-27-2010 [facility] RENAL [facility] FAILURE [facility] 7931 NONSPEC 02-26-2010 [facility] F[facility] RAD SERV OTH EXAM [facility] BODY STRUCT LUNG FIELD 0389 UNSPECIFIED 02-21-2010 [facility] 1629 MALIGNANT 02-21-2010 [place] NEOPLASM MEDICAL BRONCHUS&MAINOR IMAGING ASS NG UNSPEC SITE 75678 OTHER FLUID 02-21-2010 [facility] 5849 ACUTE 02-21-2010 [facility] FAILURE UNSPECIFIED 6821 CELLULITIS 02-21-2010 [facility] 7239 UNSPEC 02-21-2010 [facility] MUSCULOSKEL SERV F[facility]ATIO D/O&SYMPTOM S REFERABLE NECK 27800 SEPSIS 02-21-2010 [facility] 6822 CELLULITIS 02-20-2010 [facility] 74707 FEVER 02-20-2010 [place] UNSPECIFIED EMERGENCY SERVICES 44764 OTHER 02-20-2010 [facility] DYSPNEA AND EMERGENCY SERVICES RESPIRATORY ABNORMALITI ES 7820 DISTURBANCE 12-17-2009 [place] OF SKIN MEDICAL SENSATION IMAGING ASS 05147 OTHER VOICE 03-24-2009 [facility] THE DISORDERS [facility] 2356 NEOPLASM OF 03-18-2009 [facility] INC LARYNX 2391 NEOPLASM 03-18-2009 [facility] UNSPECIFIED [facility] RESPIRATORY PROF SERV SYSTEM 08534 DIAB W/O 03-18-2009 [facility] COMP TYPE [facility] II/UNS NOT HOSPITAL STATED PROF SERV UNCNTRL V7283 OTHER 03-18-2009 [facility] SPECIFIED [facility] PROF SERV EXAMINATION 69002 OPEN WOUND 09-29-2008 [facility] WITHOUT EMERGENCY MENTION SERVICES COMPLICATIO ASSOCIATES N 25094 OPEN WOUND 09-29-2008 [facility] SITES SERVICE WITHOUT MENTION COMP 9160 HIP THI 09-29-2008 [facility] LEG&ANK [facility]BUL[facility] ABRASION/FR SERVICE ICION BURN W/O INF 24273 CONTUSION 09-29-2008 [facility] OF [facility]ERGENCY SERVICES ASSOCIATES E8859 FALL FROM 09-29-2008 [facility] OTHER EMERGENCY SLIPPING SERVICES TRIPPING OR ASSOCIATES [facility] 8472 LUMBAR 03-30-2008 [place] [facility] Procedures Procedure DOS Code Location Performer Comment INTRATHOR 4[address] [facility] ACIC 3 Y Y ESOPHAGOG [facility] ASTROSTOM Y OTHER 4639 [facility] ENTEROSTO 3 Y Y [facility] PARTIAL 4241 [facility] ESOPHAGEC 3 Y Y [facility] 4311 [facility] OUS 3 Y [facility] MY OTHER 4289 [facility] REPAIR OF 3 Y Y [facility]PITAL ESOPHAGUS OTHER 8669 [facility] SKIN 0 Y Y GRAFT TO HOSPITAL HOSPITAL OTHER SITES PERCUTANE 4311 [facility] OUS 0 Y [facility] Y ON [facility] HOSPITAL PHARYNX RADICAL 304 [facility] LARYNGECT [address] [facility] NONEXCISI 8628 [facility] ONAL 0 Y Y DEBRIDEME [facility] NT WOUND INFECTION /BURN LARYNGOSC 3142 [facility] OPY AND 0 Y Y OTHER HOSPITAL HOSPITAL TRACHEOSC OPY OTHER 3009 [facility] EXCISION/ 0 Y Y [facility] ON LESION/TI SSUE LARYNX CONT 9672 [facility] INVASIVE 0 Y Y [facility] 96 CONSECUTI VE HRS/MORE OTH 8604 [facility] INCISION 0 Y Y W/[facility] E SKIN&SUBC UTANEOUS TISSUE Encounters Encounter Start End Date Code Location Performer Type Date [facility] UK - 7 7 [facility] 7 7 [facility] - 7 7 [facility] 7 [facility] 7 [facility] 7 [facility] - 7 7 [facility] [...] [facility] - 6 6 Y [facility] - 6 6 [facility] - 6 6 [facility] 6 6 [facility] - 5 5 Y [facility] UNIVERSIT - 5 5 Y [facility] JOE - 5 5 [facility] - 5 5 Y [facility] UNIVERSIT - 5 5 Y [facility] UNIVERSIT - 5 5 Y [facility] UNIVERSIT - 5 5 Y [facility] UNIVERSIT - 4 4 Y [facility] UNIVERSIT - 4 4 Y [facility] UNIVERSIT - 4 4 Y [facility] JOE - 4 4 [facility] - 4 4 Y [facility] UNIVERSIT [facility] 4 4 Y [facility] JOE - 4 4 [facility] 4 4 Y [facility] JOE - 4 4 [facility] 4 4 Y [facility] JOE - 4 4 [facility] - 4 4 [facility] - 4 4 [facility] - 4 4 [facility] JOE - 4 4 [facility] JOE - 4 4 [facility] UNIVERSIT - 4 4 Y [facility] UNIVERSIT - 4 4 Y [facility] UNIVERSIT - 4 4 Y [facility] UNIVERSIT - 4 4 Y [facility] UNIVERSIT - 3 3 Y [facility] JOE - 3 3 [facility] UNIVERSIT - 3 3 Y [facility] JOE - 3 3 [facility] UNIVERSIT - 3 3 Y [facility] UNIVERSIT - 3 3 Y [facility] JOE - 3 3 [facility] UNIVERSIT - 3 3 Y [facility] UNIVERSIT - 3 3 Y [facility] UNIVERS[facility] - 3 3 Y [facility] JOE - 3 3 [facility] UNIVERSIT - 3 3 Y [facility] UNIVERSIT - 3 3 Y [facility] JOE - 3 3 [facility] UNIVERSIT - 3 3 Y [facility] UNIVERSIT - 3 3 Y [facility] UNIVERSIT - 3 3 Y [facility] JOE - 3 3 [facility] UNIVERSIT - 3 3 Y [facility] UNIVERSIT - 3 3 Y [facility] UNIVERSIT - 3 3 Y [facility] JOE - 3 3 [facility] UNIVERSIT - 3 3 Y [facility] UNIVERSIT - 3 3 Y [facility] UNIVERSIT - 3 3 Y [facility] JOE - 3 3 [facility] JOE - 3 3 [facility] JOE - 3 3 [facility] UNIVERSIT - 2 2 Y [facility] JOE - 2 2 [facility] UNIVERSIT - 2 2 Y [facility] JOE - 2 2 [facility] UNIVERSIT - 2 2 Y [facility] UNIVERSIT - 2 2 Y [facility] UNIVERSIT - 2 2 Y [facility] UNIVERSIT - 2 2 Y [facility] UNIVERSIT - 2 2 Y [facility] UNIVERSIT - 2 2 Y [facility] UNIVERSIT - 2 2 Y [facility] UNIVERSIT - 2 2 Y [facility] UNIVERSIT - 2 2 Y [facility] UNIVERSIT - 2 2 Y [facility] UNIVERSIT - 2 2 Y [facility] UNIVERSIT - 2 2 Y [facility] UNIVERSIT - 2 2 Y [facility] UNIVERSIT - 2 2 Y [facility] UNIVERSIT - 2 2 Y [facility] UNIVERS[facility] - 2 2 Y [facility] UNIVERS[facility] - 2 2 Y [facility] UNIVERS[facility] - 1 1 Y [facility] UNIVERS[facility] - 1 1 Y [facility] UNIVERS[facility] - 1 1 Y [facility]IVERS[facility] - 1 1 Y [facility] UNIVERS[facility] - 1 1 Y [facility] UNIVERS[facility] - 1 1 Y [facility] UNIVERS[facility] - 1 1 Y [facility] UNIVERS[facility] - 1 1 Y [facility] UNIVERS[facility] - 1 1 Y [facility] - 1 1 Y [facility] - 1 1 Y [facility] UNIVERSIT - 1 1 Y [facility] - 1 1 [facility] 1 [facility] 1 Y [facility] - 1 1 [facility] 1 [facility] 1 [facility] - 1 1 Y [facility] - 1 1 Y [facility] - 1 1 Y [facility] - 1 1 Y [facility] - 1 1 Y [facility] - 1 1 [facility] 1 Y [facility] - 1 1 Y [facility] - 1 1 [facility] 1 [facility] - 1 1 [facility] - 1 1 [facility] - 1 1 [facility] - 1 1 Y [facility] - 1 1 [facility] 1 1 [facility] - 1 1 Y [facility] UN[facility] - 1 1 Y [facility] UN[facility] - 1 1 Y [facility] - 1 1 Y [facility] - 1 1 Y [facility] - 1 1 Y [facility] - 1 1 Y [facility]IV[facility] - 1 1 Y [facility]IV[facility] - 1 1 Y [facility]ERS[facility] - 1 1 Y [facility] UNIVERSIT - 1 1 Y [facility] UNIVERS[facility] - 1 1 Y [facility] UNIVERSIT - 1 1 Y [facility] UNIVERSIT [facility] 1 1 Y [facility] UNIVERSIT - 1 1 Y [facility] JOE - 1 1 [facility] JO[facility] - 1 1 [facility] - 1 1 [facility] JOE - 1 1 [facility] JOE - 0 0 [facility] UNIVERSIT - 0 0 [facility] UNIV[facility] 0 0 Y [facility] UNIVERSIT - 0 0 Y [facility] JOE - 0 0 [facility] JOE - 0 0 [facility] JOE - 0 0 [facility] JOE - 0 0 [facility] [place] [id number] 0 [facility] 9 9 [facility] JOE - 9 9 [facility] JOE - 9 9 [facility] JOE - 9 9 [facility] JOE - 8 8 [facility] JOE - 8 8 [facility]
--- OUTSIDE RECORDS SUMMARY | 2017-04-05 22:57 | External Medical Summary Rpt | CCD ---
Author Author , DONALD BENNETT Address Unknown Phone [email or web address] Immunization Name Date Rout CVX Reac Dose Comm Prov Is Faci e tion ent ider Refu lity Give sed n Infl 09-2 0.5 Hist GSHA No GSHA uenz 6-20 mL oric NE NE a 17 al Quad Info rmat W/Pr ion es - Sour ce Unsp ecif ied Infl 10-2 Intr 150 999 Hist D203 No D203 uenz 7-20 amus oric 45 45 a 16 cula al Quad r Info Inj rmat ion - Sour ce Unsp ecif ied
--- OUTSIDE RECORDS SUMMARY | 2017-04-05 22:57 | External Medical Summary Rpt | CCD ---
Author Author , DONALD BENNETT Address Unknown Phone [email or web address] Immunization Name Date Rout CVX Reac Dose [...]
--- NOTE | 2017-04-05 23:31 | Emergency Room Report ---
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 N Clinical Suspician of Infection? N Mental Status: 1 - Regular (Normal Baseline) Sepsis Risk:Low Sepsis Risk Have you (or family members/close friends) recently traveled outside the [facility]? N If Yes, where/when: Have you had exposure to infectious disease within the past month? N TB? Other? Specify: Comment The patient accidentally dislodged his feeding tube that he had placed at the beginning of January at [facility]. He says it happened around 7: 00 or so, possibly earlier, he did not notice it for several hours. He did not try and reinsert it at home. He has a 14 Hebrew red rubber catheter that had been sutured in place. ALLERGIES Coded Allergies: No Known Allergies (11/01/15) Home Medications Active Scripts MORPHINE SULF IMMED.RELEASE (Morphine Sulfate) 15 MG PO QID #120 TAB Prov: 10/17/15 OXYCODONE HCL/ACETAMINOPHEN (Percocet 10-325 MG Tablet) 1 TAB PO QID #120 TAB Prov: 10/17/15 Reported Medications Levothyroxine Sodium (Synthroid 0.025MG) (Unknown Dose) PO DAILY LISINOPRIL (Lisinopril) 10 MG PO DAILY Gabapentin (Gabapentin 300MG) 300 MG PO TID Omeprazole 20 MG PO DAILY History Medical History General CAD? No Angina: No CT: No Hypertension? No Hyperlipidemia? No CHF? No DVT? No PE? No COPD? No Asthma? No Anemia? No GERD? No Gastric ulcers? No GI Bleed? No Hernia? No Thyroid Problems? No Hypothyroidism? No CVA? No Seizures? Yes Diabetes? No Renal Insuffiency? No End Stage Renal Disease? No UTI? No Stones? No BPH? No GB Disease: No Nephritic Syndrome? No Asplenia? No Hepatitis? No Sickle Cell Disease? No Arthritis? Yes Migraines? No Cataracts? No Glaucoma? No MRSA? No HIV? No TB? No Anxiety? No Depression? No Cancer? Yes Site: LARYNX More? No Immunization Hx DT/Tetanus Unknown Flu LAST YEAR Pneumonia NEVER Surgical Hx Previous Surgery?Y LARYNX LEFT KNEE REPLACEMENT LENS IMPLANTS TRACH PLACED LEFT KNEE REPALCEMENT TRACH FEB 02 SURGERY ON THROAT- WOUND VAC PLACED S/P LARNYX CA Family History Family Hx Diabetes No CAD Yes Hypertension Yes Hyperlipidemia Yes Cancer No TB No Social History Smoking Hx Smoker: Current Some Day Smoker Tobacco: Yes Type Cigarettes Packs/day < 1 Pack Alcohol Alcohol: No Review of Systems All Other Systems Reviewed and Negative Constitutional denies fever Gastrointestinal see HPI Physical Exam Vital Signs Vital Signs Date Time Temp Pulse Resp B/P Pulse O2 O2 Flow FiO2 Ox Delivery Rate 04/06 0020 98.6 66 17 107/85 100 04/06 0018 98.6 66 17 107/85 100 04/05 2226 98.8 83 14 134/75 99 General Appearance no apparent distress Ear, Nose, Throat tracheostomy, laryngectomy Respiratory Status No: respiratory distress. Cardiovascular regular rate/rhythm Gastrointestinal feeding tube insertion site present LEFT upper quadrant. Stapled midline surgical incision intact Neurologic alert Medical Decision Making LABS/Meds/Orders Pt receiving controlled substance in ED? No Results/Orders Current Medication Orders Sig/Samuel Start time Last Medication Dose Route Stop Time Status Admin Diatrizoate Meglum/ 30 ML ONCE ONE 04/05 2330 DC Diatrizoate Sod FT 04/05 2331 Orders Procedure Date/time Status KUB (SINGLE VIEW) 04/05 2323 Active XRAY/CT/US XRAY/CT/US XRAY abdomen Comment X-ray interpreted by Dyana Beckwith M.D.: Gastrografin present in gastrointestinal tract, placement of feeding tube is appropriate Progress - Feeding tube replacement Performed by: DYANA BECKWITH Consent: By patient, verbal Patient identity confirmed: armband g-tube size: 14 Hebrew red rubber catheter Tube sutured in place with 0 silk. 1 percent lidocaine with epinephrine local anesthetic. gastrograffin x-ray ordered for confirmation of placement. Patient tolerance: Patient tolerated the procedure well with no immediate complications Departure Departure Disposition DC Home or Self Care(routine) Clinical Impression Primary Impression: Complication of feeding tube Condition STABLE ED Critical Care Critical Care No at 0106
--- NOTE | 2017-04-05 23:31 | Emergency Room Report ---
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 N Clinical Suspician of Infection? N Mental Status: 1 - Regular (Normal Baseline) Sepsis Risk:Low Sepsis Risk Have you (or family members/close friends) recently traveled outside the [facility]? N If Yes, where/when: Have you had exposure to infectious disease within the past month? N TB? Other? Specify: Comment The patient accidentally dislodged his feeding tube that he had placed at the beginning of January at [facility]. He says it happened around 7: 00 or so, possibly earlier, he did not notice it for several hours. He did not try and reinsert it at home. He has a 14 Kyrgyz red rubber catheter that had been sutured in place. ALLERGIES Coded Allergies: No Known Allergies (11/01/15) Home Medications Active Scripts MORPHINE SULF IMMED.RELEASE (Morphine Sulfate) 15 MG PO QID #120 TAB Prov: 10/17/15 OXYCODONE HCL/ACETAMINOPHEN (Percocet 10-325 MG Tablet) 1 TAB PO QID #120 TAB Prov: 10/17/15 Reported Medications Levothyroxine Sodium (Synthroid 0.025MG) (Unknown Dose) PO DAILY LISINOPRIL (Lisinopril) 10 MG PO DAILY Gabapentin (Gabapentin 300MG) 300 MG PO TID Omeprazole 20 MG PO DAILY History Medical History General CAD? No Angina: No [place]: No Hypertension? No Hyperlipidemia? No CHF? No DVT? No PE? No COPD? No Asthma? No Anemia? No GERD? No Gastric ulcers? No GI Bleed? No Hernia? No Thyroid Problems? No Hypothyroidism? No CVA? No Seizures? Yes Diabetes? No Renal Insuffiency? No End Stage Renal Disease? No UTI? No Stones? No BPH? No GB Disease: No Nephritic Syndrome? No Asplenia? No Hepatitis? No Sickle Cell Disease? No Arthritis? Yes Migraines? No Cataracts? No Glaucoma? No MRSA? No HIV? No TB? No Anxiety? No Depression? No Cancer? Yes Site: LARYNX More? No Immunization Hx DT/Tetanus Unknown Flu LAST YEAR Pneumonia NEVER Surgical Hx Previous Surgery?Y LARYNX LEFT KNEE REPLACEMENT LENS IMPLANTS TRACH PLACED LEFT KNEE REPALCEMENT TRACH FEB 02 SURGERY ON THROAT- WOUND VAC PLACED S/P LARNYX CA Family History Family Hx Diabetes No CAD Yes Hypertension Yes Hyperlipidemia Yes Cancer No TB No Social History Smoking Hx Smoker: Current Some Day Smoker Tobacco: Yes Type Cigarettes Packs/day < 1 Pack Alcohol Alcohol: No Review of Systems All Other Systems Reviewed and Negative Constitutional denies fever Gastrointestinal see HPI Physical Exam Vital Signs Vital Signs Date Time Temp Pulse Resp B/P Pulse O2 O2 Flow FiO2 Ox Delivery Rate 04/06 0020 98.6 66 17 107/85 100 04/06 0018 98.6 66 17 107/85 100 04/05 2226 98.8 83 14 134/75 99 General Appearance no apparent distress Ear, Nose, Throat tracheostomy, laryngectomy Respiratory Status No: respiratory distress. Cardiovascular regular rate/rhythm Gastrointestinal feeding tube insertion site present LEFT upper quadrant. Stapled midline surgical incision intact Neurologic alert Medical Decision Making LABS/Meds/Orders Pt receiving controlled substance in ED? No Results/Orders Current Medication Orders Sig/Samuel Start time Last Medication Dose Route Stop Time Status Admin Diatrizoate Meglum/ 30 ML ONCE ONE 04/05 2330 DC Diatrizoate Sod FT 04/05 2331 Orders Procedure Date/time Status KUB (SINGLE VIEW) 04/05 2323 Active XRAY/CT/US XRAY/CT/US XRAY abdomen Comment X-ray interpreted by Dyana Beckwith M.D.: Gastrografin present in gastrointestinal tract, placement of feeding tube is appropriate Progress - Feeding tube replacement Performed by: DYANA BECKWITH Consent: By patient, verbal Patient identity confirmed: armband g-tube size: 14 Kyrgyz red rubber catheter Tube sutured in place with 0 silk. 1 percent lidocaine with epinephrine local anesthetic. gastrograffin x-ray ordered for confirmation of placement. Patient tolerance: Patient tolerated the procedure well with no immediate complications Departure Departure Disposition DC Home or Self Care(routine) Clinical Impression Primary Impression: Complication of feeding tube Condition STABLE ED Critical Care Critical Care No at 0106
[2017-04-06 00:20] VITALS: BP 107/85
--- NOTE | 2017-04-08 07:26 | RADIOLOGY REPORT PS360 ---
KUB (SINGLE VIEW) COMPARISON: Acute abdominal series 08/03/2013. HISTORY: Feeding tube placement TECHNIQUE: Interval reduction of contrast through the feeding tube FINDINGS: The feeding tube is seen entering the left side of the abdomen with the tip in the proximal jejunum. Gastrografin contrast was introduced through the tube and opacifies the proximal jejunum with some retrograde flow into the duodenal sweep as well. Is no evidence of extravasation. IMPRESSION: Satisfactory placement of feeding tube with no leakage identified
== END 2017-04-06 00:20 | disposition home or self-care (01) ==
LOC: ER 22:25
PROC: 0B21XFZ Change Tracheostomy Device in Trachea, External Approach (ICD-10-PCS; principal; 2017-04-05)
DX: T85.598A Other mechanical complication of other gastrointestinal prosthetic devices, implants and grafts, initial encounter (principal); Z46.59 Encounter for fitting and adjustment of other gastrointestinal appliance and device

== ENCOUNTER 2017-04-06 11:43 | Emergency (ER) | payer MEDICARE, MEDICAID ==
[~2017-04-06] VITALS: Ht 172.7 cm; Wt 67.6 kg
[~2017-04-06 11:43] MED LIST changes: +GABAPENTIN300 MG PO
--- OUTSIDE RECORDS SUMMARY | 2017-04-06 11:53 | External Medical Summary Rpt | CCD ---
Author Author , DONALD BENNETT Address Unknown Phone [email or web address] Immunization Name Date Rout CVX Reac Dose [...]
--- OUTSIDE RECORDS SUMMARY | 2017-04-06 11:53 | External Medical Summary Rpt | CCD ---
Author Author [employer] Organization [employer] Address Unknown Phone Unavailable Purpose Continuity of Care Document - through 2016
--- OUTSIDE RECORDS SUMMARY | 2017-04-06 11:53 | External Medical Summary Rpt | CCD ---
Author Author , DONALD BENNETT Address Unknown Phone [email or web address] Immunization Name Date Rout CVX Reac Dose [...]
--- OUTSIDE RECORDS SUMMARY | 2017-04-06 11:53 | External Medical Summary Rpt | CCD ---
Author Author , DONALD BENNETT Address Unknown Phone [email or web address] Care Team Providers Care Roof Shingler Name Role Phone Kenia Bruce MD, Unavailable Unavailable Kenia Colmenares MD, Unavailable Unavailable Tayler Colmenares MD Purpose Continuity of Care Document - 10-22-2012 through 2016 Problems Code Diagnosis DOS Provider Status 786.50 786.50 04-20-2013 [place] CHEST PAIN [facility] [place] 161.9 161.9 03-07-2013 [place] MALIGNANT [facility] NOS 536.49 536.49 OTH 03-07-2013 [place] GASTROSTOMY [facility] COMPLICATIO N 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, UNSPECIFIED D64.9 ANEMIA, UNSPECIFIED E55.9 VITAMIN D DEFICIENCY, UNSPECIFIED F10.129 ALCOHOL ABUSE WITH INTOXICATIO N, UNSPECIFIED F10.929 ALCOHOL USE, UNSPECIFIED WITH INTOXICATIO N, UNSPECIFIED G40.909 EPILEPSY, UNSP, NOT INTRACTABLE , WITHOUT STATUS EPILEPTICUS I10 ESSENTIAL (PRIMARY) HYPERTENSIO N J02.9 ACUTE PHARYNGITIS , UNSPECIFIED J44.1 CHRONIC OBSTRUCTIVE PULMONARY DISEASE W (ACUTE) EXACERBATIO N K59.00 CONSTIPATIO N, UNSPECIFIED 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 M25.519 PAIN IN UNSPECIFIED SHOULDER M53.2X1 SPINAL INSTABILITI ES, OCCIPITO-AT [place]ION M54.2 CERVICALGIA M54.5 LOW BACK PAIN M75.80 OTHER SHOULDER LESIONS, UNSPECIFIED SHOULDER R04.2 HEMOPTYSIS R07.9 CHEST PAIN, UNSPECIFIED R09.1 PLEURISY R10.9 UNSPECIFIED ABDOMINAL PAIN S40.019A CONTUSION OF UNSPECIFIED SHOULDER, INITIAL ENCOUNTER 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 Z98.890 OTHER SPECIFIED POSTPROCEDU [...] Order Detail nces retati t Range on Phosphate SerPl-mCnc (03-14-2017 06:36) Phospha 03-14-2 3.4 2.5-4.5 complet te 017 mg/dL ed SerPl-m 06:36 Cnc Magnesium SerPl-mCnc (03-14-2017 06:36) Magnesi 2 2.1 1.9-2.4 complet um 017 mg/dL ed SerPl-m 06:36 Cnc Phosphate SerPl-mCnc (03-12-2017 04:47) Phospha 03-12-2 4.0 2.5-4.5 complet te 017 mg/dL ed SerPl-m 04:47 Cnc Magnesium SerPl-mCnc (03-12-2017 04:47) Magnesi 03-12-2 1.8 1.9-2.4 complet um 017 mg/dL ed SerPl-m 04:47 Cnc Phosphate SerPl-mCnc (03-10-2017 04:31) Phospha 03-10-2 3.7 2.5-4.5 complet te 017 mg/dL ed SerPl-m 04:31 Cnc Magnesium SerPl-mCnc (03-10-2017 04:31) Magnesi 03-10-2 1.7 1.9-2.4 complet um 017 mg/dL ed [...] 02:58 Cnc MDRO Wnd (03-07-2017 14:37) Bacteri [id number] complet a XXX 017 00 not ed [...] te 017 mg/dL ed SerPl-m 03:37 Cnc Vancomycin SerPl-mCnc (03-07-2017 03:37) Vancomy 18.9 0-40.0 complet suresh 017 ug/mL ed SerPl-m 03:37 Cnc Magnesium SerPl-mCnc (03-07-2017 03:37) Magnesi 1.8 1.9-2.4 complet um 017 mg/dL ed SerPl-m 03:37 Cnc Phosphate SerPl-mCnc (03-06-2017 22:28) Phospha 3.7 2.5-4.5 complet te 017 mg/dL ed SerPl-m 22:28 Cnc Magnesium SerPl-mCnc (03-06-2017 22:28) Magnesi 1.7 1.9-2.4 complet um 017 mg/dL ed SerPl-m 22:28 Cnc Lactate Bld-sCnc (03-06-2017 22:28) Lactate DUP complet 017 DUPLICA ed Bld-sCn 22:28 TE c ORDER,C REDITED L mmol/L Ca-I SerPl ISE-sCnc (01-30-2017 02:24) Ca-I 4.5 [...] with AUTO DIFF (04-20-2013 17:30) WBC # 6.1 4.8-10. complet Bld 013 K/MM3 8 ed Auto 17:30 RBC # 4.37 4.6-6.2 complet Bld 013 M/mm3 ed Auto 17:30 Hgb 11.0 14.1-18 complet Bld-mCn 013 g/dL .0 ed c 17:30 Hct Fr 35.4 % 42.0-52 complet Bld 013 .0 ed 17:30 MCV RBC 81.1 fl 82.2-97 complet 013 .8 ed 17:30 MCH RBC 12-09-2 25.1 pg 27-31.2 complet Qn 013 ed Auto 17:30 MEAN 04-20-2 31.0 31.8-35 complet CORPUSC 013 g/dl .4 ed ULAR 17:30 HGB CONC RDW RBC 04-20-2 16.2 % 11.5-17 complet Auto 013 .5 ed 17:30 Platele 04-20-2 347 142-424 complet t Bld 013 K/mm3 ed Ql 17:30 Manual MEAN 6.9 fl 7.4-10. complet PLATELE 013 4 ed T 17:30 VOLUME Granulo 04-20-2 74.6 % 37.0-80 complet cytes 013 .0 ed Fr Bld 17:30 Auto LYMPH % 04-20-2 17.9 % 10-50 complet 013 ed 17:30 Monocyt 04-20-2 4.2 % 1.7-9.3 complet es Fr 013 ed Bld 17:30 Auto Eosinop -09-2 2.7 % 0.1-12. complet hil Fr 013 0 ed Bld 17:30 Auto Basophi -09-2 0.6 % 0.1-2.0 complet ls Fr 013 ed Bld 17:30 Auto Granulo -09-2 4.6 1.3-8.0 complet cytes # 013 K/mm3 ed Bld 17:30 Auto Lymphoc 04-20-2 1.1 0.7-4.5 complet ytes Fr 013 K/mm3 ed Bld 17:30 Auto Monocyt -09-2 0.3 0.1-1.0 complet es # 013 K/mm3 ed Bld 17:30 Auto Eosinop -09-2 0.2 0.0-0.4 complet hil # 013 K/mm3 ed Bld 17:30 Auto Basophi 12-09-2 0.0 0-0.2 complet ls # 013 K/MM3 ed Bld 17:30 Auto COMPREHENSIVE METABOLIC PANEL (01-10-2013 23:20) Glucose 90 74-106 complet 013 mg/dL ed Bld-mCn 23:20 c BUN 8 mg/dL 7-18 complet Bld-mCn 013 ed c 23:20 Creat 2 1.2 0.8-1.3 complet SerPl-m 013 mg/dL ed Cnc 23:20 GFR 65 Greater complet (ESTIMA 013 ML/MIN than ed ANGELA) 23:20 60 Sodium 144 136-145 complet SerPl-s 013 mmoL/L ed [...] 013 mg/dL ed SerPl-m 23:20 Cnc AST 10 U/L 15-37 complet SerPl-c 013 ed Cnc 23:20 ALT 2 30 U/L 30-65 complet SerPl-c 013 ed Cnc 23:20 ALP 131 U/L 50-136 complet SerPl-c 013 ed Cnc 23:20 CBC with AUTO DIFF (01-10-2013 23:20) WBC # 31-2 4.5 4.8-10. complet Bld 013 K/MM3 8 ed Auto 23:20 RBC # 01-10-2 4.74 4.6-6.2 complet Bld 013 M/mm3 ed [...] complet Auto 013 .5 ed 23:20 Platele --2 297 142-424 complet t Bld 013 K/mm3 ed Ql 23:20 Manual MEAN 01-10-2 7.1 fl 7.4-10. complet PLATELE 013 4 ed T 23:20 VOLUME Granulo 31-2 67.5 % 37.0-80 complet cytes 013 .0 ed Fr Bld 23:20 Auto LYMPH % -31-2 23.7 % 10-50 complet 013 ed 23:20 Monocyt -31-2 3.4 % 1.7-9.3 complet es Fr 013 ed Bld 23:20 Auto Eosinop -31-2 4.4 % 0.1-12. complet hil Fr 013 0 ed Bld 23:20 Auto Basophi -31-2 0.9 % 0.1-2.0 complet ls Fr 013 ed Bld 23:20 Auto Granulo 08-31-2 3.1 1.3-8.0 complet cytes # 013 K/mm3 ed Bld 23:20 Auto Lymphoc 08-31-2 1.1 0.7-4.5 complet ytes Fr 013 K/mm3 [...] 013 K/mm3 ed Bld 21:30 Auto Eosinop 0.1 0.0-0.4 complet hil # 013 K/mm3 ed Bld 21:30 Auto Basophi 0.0 0-0.2 complet ls # 013 K/MM3 ed Bld 21:30 Auto Procedures Procedure DOS Code Location Performer Comment REPLACE 97.02 Kenia Bruce MD MY TUBE Encounters Encounter Start End Date Code Location Performer Type Date Emergency NILS Colmenares MD (ER) 3 19:40 3 20:54 [facility] Emergency NILS Bruce MD (ER) 3 08:59 3 11:50 [facility] Emergency NILS Colmenares MD (ER) 3 23:25 3 02:00 [facility] Emergency NILS Colmenares MD (ER) 3 21:19 3 22:20 [facility]
--- OUTSIDE RECORDS SUMMARY | 2017-04-06 11:53 | External Medical Summary Rpt | CCD ---
Author Author , DONALD BENNETT Address Unknown Phone [email or web address] Care Team Providers Care Child Welfare Social Worker Name Role Phone Kenia Bruce MD, Unavailable Unavailable Kenia Colmenares MD, Unavailable Unavailable Tayler Colmenares MD Purpose Continuity of Care Document - 10-22-2012 through 2016 Problems Code Diagnosis DOS Provider Status 786.50 786.50 04-20-2013 [place] CHEST PAIN [facility] 161.9 161.9 03-07-2013 [place] MALIGNANT [facility] NOS 536.49 536.49 OTH 03-07-2013 [place] GASTROSTOMY [facility] COMPLICATIO N C32.9 MALIGNANT NEOPLASM OF [...] OF UNSPECIFIED SHOULDER, INITIAL ENCOUNTER 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
--- NOTE | 2017-04-06 12:08 | Emergency Room Report ---
History of Present Illness Time Seen by 1150 Presenting Problem in Triage Pt arrived:Walked Presenting Problem:PT REPORTS HIS FEEDING TUBE IS "CLOGGED UP" AND IS HAVING PAIN ON L SIDE OF ABD. REPORTS WAS IN ER LASTNIGHT, HIS FEEDING TUBE HAD COME OUT, ANOTHER ONE WAS PLACED BY ER DOCTOR, STATES THIS TUBE IS SMALLER THAN HIS ORIGINAL FEEDING TUBE. 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 N Clinical Suspician of Infection? N Mental Status: 1 - Regular (Normal Baseline) Sepsis Risk:Low Sepsis Risk Have you (or family members/close friends) recently traveled outside the [place]? N If Yes, where/when: Have you had exposure to infectious disease within the past month? TB? Other? Specify: Source patient, RN notes reviewed, family, old records Exam Limitations no limitations Comment pt with g tube which does not no work this am - pt had feeding tube placed about 3 weeks ago at and accidently pulled out last pm and replaced by ed and he used it last pm but this am will not flush - he has no fever or vomiting but some pain lt upper abd Cardiac Chest Pain Chest pain indicative of cardiac No Timing/Duration this evening Severity moderate ALLERGIES Coded Allergies: No Known Allergies (11/01/15) Home Medications Active Scripts MORPHINE SULF IMMED.RELEASE (Morphine Sulfate) 15 MG PO QID #120 TAB Prov: 10/17/15 OXYCODONE HCL/ACETAMINOPHEN (Percocet 10-325 MG Tablet) 1 TAB PO QID #120 TAB Prov: 10/17/15 Reported Medications Levothyroxine Sodium (Synthroid 0.025MG) (Unknown Dose) PO DAILY LISINOPRIL (Lisinopril) 10 MG PO DAILY Gabapentin (Gabapentin 300MG) 300 MG PO TID Omeprazole 20 MG PO DAILY History Medical History General CAD? No Angina: No [place]: No Hypertension? No Hyperlipidemia? No CHF? No DVT? No PE? No COPD? No Asthma? No Anemia? No GERD? No Gastric ulcers? No GI Bleed? No Hernia? No Thyroid Problems? No Hypothyroidism? No CVA? No Seizures? Yes Diabetes? No Renal Insuffiency? No End Stage Renal Disease? No UTI? No Stones? No BPH? No GB Disease: No Nephritic Syndrome? No Asplenia? No Hepatitis? No Sickle Cell Disease? No Arthritis? Yes Migraines? No Cataracts? No Glaucoma? No MRSA? No HIV? No TB? No Anxiety? No Depression? No Cancer? Yes Site: L[facility] More? No Immunization Hx DT/Tetanus Unknown Flu LAST YEAR Pneumonia NEVER Surgical Hx Previous Surgery?Y [facility] LEFT KNEE REPLACEMENT LENS IMPLANTS TRACH PLACED LEFT KNEE REPALCEMENT TRACH FEB 02 SURGERY ON THROAT- WOUND VAC PLACED S/P LARNYX CA Family History Family Hx Diabetes No CAD Yes Hypertension Yes Hyperlipidemia Yes Cancer No TB No Social History Smoking Hx Smoker: Former Smoker Tobacco: No Packs/day < 1 Pack Alcohol Alcohol: No Drugs none Review of Systems All Other Systems Reviewed and Negative Constitutional denies fever Eyes denies drainage ENT denies: ear discharge, epistaxis, throat pain. Respiratory see HPI, denies cough, denies shortness of breath, other Cardiovascular denies chest pain, denies palpitations, denies syncope Gastrointestinal see HPI, abdominal pain, denies diarrhea, denies nausea, denies vomiting, other Genitourinary denies: dysuria, frequency, hesitancy, hematuria. Musculoskeletal denies back pain, denies joint pain, denies joint swelling, denies neck pain Skin denies rash Psychiatric/Neurological denies headache, denies seizure Physical Exam Vital Signs Vital Signs Date Time Temp Pulse Resp B/P Pulse O2 O2 Flow FiO2 Ox Delivery Rate 04/06 1312 98.4 64 18 104/70 100 04/06 1148 98.7 84 18 116/69 98 - WBC >12,000 or <4,000 or 10% bands? 2 or more SIRS Criteria Met? B/P:104/70 MAP:84 Creatinine >2.0? UA output<0.5ml/kg/hr for 2 hrs? Platelet count >100,000? Lactate >2.0mmol/1? INR >1.2 or PTT > than 60 sec? Evidence of Organ Dysfunction? Provider documented clinical suspician of infection? N Sepsis Criteria Count: 0 Sepsis Risk: Low Sepsis Risk General Appearance no apparent distress Eye Exam - bilateral eye PERRL, bilateral eye EOMI Ear, Nose, Throat normal ENT inspection Neck non-tender Respiratory Status No: respiratory distress. 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 No Results/Orders Laboratory Tests 04/06/17 1230: Sodium 144, Potassium 4.3, Chloride 106, Carbon Dioxide 32, BUN 12, Creatinine 0.7 L, Estimated Creat Clear 121, Estimated GFR (MDRD) 119, Glucose 98, Calcium 8.5, Total Bilirubin 0.2, AST 10 L, ALT 15, Alkaline Phosphatase 128 H, Total Protein 6.0 L, Albumin 2.9 L, Globulin 3.1, Albumin/Globulin Ratio 0.9 L, Amylase 60, Lipase 83, WBC 7.4, RBC 4.19 L, Hgb 10.0 L, Hct 33.0 L, MCV 78.8 L, RDW 14.8, Plt Count 332, MPV 7.2 L, Gran % 80.0, Gran # 5.9, Lymphocytes % 12.0, Monocytes % 5.1, Eosinophils % 2.4, Basophils % 0.6, Lymphocytes # 0.9, Monocytes # 0.4, Eosinophils # 0.2, Basophils # 0.0, PUBS MCHC 30.3 L, MCH 23.9 L Current Medication Orders Sig/Samuel Start time Last Medication Dose Route Stop Time Status Admin Sodium Chloride 10 ML PRN PRN 04/06 1230 AC IV 04/07 1223 Orders Procedure Date/time Status DIET-NOTHING BY MOUTH 04/[address] SCAN REQ 04/06 1224 Complete IV SALINE LOCK 04/06 1224 Active LIPASE 04/06 1224 Complete COMPLETE METABOLIC PANEL 04/06 1224 Complete CBC WITH AUTO DIFF 04/06 1224 Complete AMYLASE 04/06 1224 Complete XRAY/CT/US XRAY/CT/US CT abdomen, pelvis CT interpretation by discussed w/radiologist Time results known: 1433 CT Results abnormal (see report) Departure Departure Time of Disposition 1433 Disposition DC Home or Self Care(routine) Clinical Impression Primary Impression: Complication of feeding tube Secondary Impressions: Feeding tube blocked Qualifiers: Encounter type: initial encounter Qualified Code: T85.598A - Other mechanical complication of other gastrointestinal prosthetic devices, implants and grafts, initial encounter Condition STABLE Patient Instructions DI for Abdominal Pain-Adult Additional Instructions call pcp and [place] surg for follow up ED Critical Care Critical Care No Comments pt does not want to be transferred to and i discussed with [place] dr soares surg who felt he should come ed for eval at 2683
[2017-04-06 12:41] LABS: LYMPH # 0.9 K/mm3 (0.7-4.5)
--- NOTE | 2017-04-06 13:38 | RADIOLOGY REPORT PS360 ---
CT ABD PELVIS W/O CONTRAST COMPARISON: None HISTORY: Abdominal pain, patient has feeding tube in place and proximal small bowel TECHNIQUE: Multiaxial scans obtained from hemidiaphragms the pelvic floor and were performed without IV or oral contrast. There is oral contrast in the bowel from the Gastrografin injected yesterday for checking on feeding tube placement. Sagittal and coronal reformats were evaluated as well. FINDINGS: The lower lung maier are clear. 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 Liver spleen pancreas and gallbladder appear grossly normal. The feeding tube is seen entering the left upper quadrant for 2 within the proximal jejunum. The Gastrografin contrast was was injected yesterday afternoon now is in the ascending and transverse colon. Small bowel appears grossly . There is a moderate amount of stool mixed with oral contrast in the ascending and transverse colon. There is large amount stool in the lower descending colon and sigmoid colon. Urinary bladder is grossly normal and the prostate is normal. There is right angle hernia containing fat only. IMPRESSION: Postsurgical changes involving the stomach, proximal jejunal feeding tube in place, no acute abdominal or pelvic pathology identified
[2017-04-06 15:37] VITALS: BP 105/70
== END 2017-04-06 15:38 | disposition home or self-care (01) ==
LOC: ER 11:43
PROVIDERS: Emergency Medicine
DX: T85.598A Other mechanical complication of other gastrointestinal prosthetic devices, implants and grafts, initial encounter (principal); Z87.891 Personal history of nicotine dependence